=== PATIENT | male | born 1965 | race Caucasian/White ===

== ENCOUNTER 2017-07-07 08:21 | Emergency (ER) | payer OTHER ==
[~2017-07-07] VITALS: Ht 175.3 cm; Wt 56.0 kg
[~2017-07-07 08:21] MED LIST: ABILIFY PO; DEPAKOTE PO; EFFEXOR PO; HYDR-906 PO; NAPR-260 PO; NEURONTIN PO; TOPAMAX PO
[2017-07-07 08:23] VITALS: Ht 175.3 cm; Wt 56.0 kg
[2017-07-07] MEDS ORDERED: [UNRECOGNIZED DRUG - CODE] MC (08:45)
[2017-07-07 09:03] VITALS: PULSE 110
--- NOTE | 2017-07-07 09:04 | ERD ---
ER Documentation Chief Complaint Chief Complaint Patient needs a prescription for colostomy bags HPI Patient is a 51-year-old male with a history of throat cancer, currently on chemotherapy, history of bowel perforation, currently with colostomy bag, who presents ED for concerns of needing a refill of his colostomy bags. Patient states he ran out yesterday. Patient currently does not have a colostomy bag at his colostomy site. Patient denies any symptoms at this time. Patient denies any fevers, chills, nausea, vomiting, chest pain, shortness of breath, abdominal pain, nausea, vomiting or loss of consciousness. Patient words normal brown liquidy stool output from his colostomy site. Patient denies any bleeding from his colostomy site. Patient denies any suicidal ideations or homocidal ideations at this time. ROS All systems reviewed and are negative except as per history of present illness. Medications Home Meds Active Scripts Colostomy Bags (NEW IMAGE CLOSED POUCH) 1 Each Each, 1 EACH , #30 Prov:AUSTIN TAN PA-C 07/07/17 Hydrocodone/Acetaminophen ([employer] 5-325 Tablet) 1 Each Tablet, 1 TAB PO Q6H Y for PAIN, #7 TAB Prov:RAJWINDER FENTON PA-C 03/24/16 Naproxen* (Naprosyn*) 500 Mg Tablet, 500 MG PO BID Y for PAIN AND/OR INFLAMMATION, #30 TAB Prov:RAJWINDER FENTON PA-C 03/24/16 Reported Medications [Neurontin] No Conflict Check, PO DAILY 05/10/11 [Topamax] No Conflict Check, PO DAILY 05/10/11 [Depakote] No Conflict Check, PO DAILY 05/10/11 [Abilify] No Conflict Check, PO DAILY 05/10/11 [Effexor] No Conflict Check, PO DAILY 05/10/11 Allergies Allergies: Coded Allergies: codeine (Verified Allergy, Unknown, 03/24/16) paroxetine (Verified Allergy, Unknown, 03/24/16) PMhx/Soc History of Surgery: No Anesthesia Reaction: No Hx Neurological Disorder: No Hx Respiratory Disorders: No Hx Cardiac Disorders: No Hx Psychiatric Problems: Yes (DEPRESSION, SCITZO/EFFECTIVE ) Hx Miscellaneous Medical Probl: No Hx Alcohol Use: Yes Hx Substance Use: No Hx Tobacco Use: No Physical Exam Vitals Vital Signs Date Time Temp Pulse Resp B/P Pulse Ox O2 Delivery O2 Flow Rate FiO2 07/07/17 09:03 110 07/07/17 08:23 97.8 122 20 115/76 98 Physical Exam GENERAL: Well-developed, well-nourished male. Appears in no acute distress. Speaking in full sentences. HEAD: Normocephalic, atraumatic. EYES: Pupils are equally reactive bilaterally. EOMs grossly intact. No conjunctival erythema. ENT: Moist mucous membranes. No uvula deviation. No kissing tonsils. NECK: Supple. No meningismus. Normal range of motion of the neck. LUNG: Clear to auscultation bilaterally. No rhonchi, wheezing, rales or coarse breath sounds. HEART: Regular rhythm. Tachycardic. No murmurs, rubs or gallops. ABDOMEN: Previous surgical incisions noted. Colostomy site in mid left abdomen. Abdomen is soft, nontender, and nondistended. Positive bowel sounds in all four quadrants. No rebound tenderness, no guarding. (-) McBurney's point tenderness. EXTREMITIES: Equal pulses bilaterally. No peripheral clubbing, cyanosis or edema. No unilateral leg swelling. NEUROLOGIC: Alert and oriented. Moving all four extremities without any difficulty. Normal speech. Steady gait. SKIN: Normal color. Warm and dry. No rashes or lesions. Procedures/MDM ED COURSE: The patient was stable throughout ED course. I kept the patient and/or family informed of laboratory and diagnostic imaging results throughout the ED course. EKG: Read by Dr. Farmer, attending physician. EKG shows normal sinus rhythm at a rate of 97 bpm. No arrhythmias, acute ST elevations or T wave changes were noted. (obtained at pulse recheck) MEDICAL DECISION MAKING: Patient is a 51-year-old male with a history of throat cancer, currently receiving chemotherapy at [facility], s/p bowel surgery with colostomy who presents to the ED for concerns of a colostomy bag refill. Patient states he ran out of his bags yesterday. Patient denies any fevers, chills, nausea, vomiting, abdominal pain. Patient reports normal output from his colostomy site.. Vital signs were reviewed. Patient is afebrile. Patient was not hypoxic. Patient was noted to be tachycardic at a pulse of 122 at time of initial presentation. Patient's pulses noted to be downtrending prior to discharge. EKG was obtained and showed normal sinus rhythm, no ST elevations. Patient did admit that his pulse normally is in the upper 90s 100s. Patient was given 5 colostomy bags here in the ED to assist him over the next few days. Patient was also given a prescription for colostomy bags and instructed to go to his medical supply store to fill this prescription. At this time, patient is presenting for refill of his colostomy supplies. Low suspicion for acute abdomen, bowel obstruction, bowel perforation, sepsis, ACS. Patient denied any suicidal or homicidal ideations. Patient was stable at time of discharge. Patient was discharged per treat and release policy. PRESCRIPTION: Colostomy bags DISCHARGE: At this time, patient is stable for discharge and outpatient management. I have instructed the patient to follow-up with his/her primary care physician in 1-2 days. I have discussed with the patient the possibility of needing to see a specialist for further workup and imaging studies if symptoms persist. I have instructed the patient to promptly return to the ER for any new or worsening symptoms including increased pain, fever, nausea, vomiting, weakness or LOC. The patient and/or family expressed understanding of and agreement with this plan. All questions were answered. Home care instructions were provided. Disclaimer: Inadvertent spelling and grammatical errors are likely due to EHR/ dictation software use and do not reflect on the overall quality of patient care. Also, please note that the electronic time recorded on this note does not necessarily reflect the actual time of the patient encounter. Departure Diagnosis: Primary Impression: Colostomy care Additional Impression: Encounter for medication refill Condition: Stable Patient Instructions: Taking Medicine Safely Additional Instructions: Call your primary care doctor TOMORROW for an appointment during the next 1-2 days.See the doctor sooner or return here if your condition worsens before your appointment time. Follow up with your GI doctor/ PCP for additional refills. Go to the medical supply store to get colostomy bags. AUSTIN TAN PA-C Jul 07, 2017 09:01
== END 2017-07-07 09:30 | disposition home or self-care (01) ==
LOC: FTE 08:21
DX: Z43.3 Encounter for attention to colostomy (principal); R00.1 Bradycardia, unspecified; Z76.0 Encounter for issue of repeat prescription
CPT/HCPCS: 93005; Z7502

== ENCOUNTER 2017-07-16 12:04 | Emergency (ER) | payer OTHER ==
[~2017-07-16] VITALS: Ht 185.4 cm; Wt 55.5 kg
[~2017-07-16 12:04] MED LIST changes: +[UNRECOGNIZED DRUG - CODE] MC
[2017-07-16 12:08] VITALS: Ht 185.4 cm; Wt 55.5 kg
--- NOTE | 2017-07-16 12:38 | ERD ---
ER Documentation Chief Complaint Chief Complaint pt here for colostomy bag change HPI This is a 51-year-old male with a history of colon cancer with bowel perforation with colostomy. The patient is here because his new colostomy bags. The patient says [employer] delivered the bags to the wrong address and is having some leakage because the bag is in attaching anywhere to his skin because his old. He has no abdominal pain no leakage no other complaints. ROS All systems reviewed and are negative except as per history of present illness. Medications Home Meds Active Scripts Colostomy Bags (NEW IMAGE CLOSED POUCH) 1 Each Each, 1 EACH , #30 Prov:AUSTIN TAN PA-C 07/07/17 Hydrocodone/Acetaminophen ([place] 5-325 Tablet) 1 Each Tablet, 1 TAB PO Q6H Y for PAIN, #7 TAB Prov:RAJWINDER FENTON PA-C 03/24/16 Naproxen* (Naprosyn*) 500 Mg Tablet, 500 MG PO BID Y for PAIN AND/OR INFLAMMATION, #30 TAB Prov:RAJWINDER FENTON PA-C 03/24/16 Reported Medications [Neurontin] No Conflict Check, PO DAILY 05/10/11 [Topamax] No Conflict Check, PO DAILY 05/10/11 [Depakote] No Conflict Check, PO DAILY 05/10/11 [Abilify] No Conflict Check, PO DAILY 05/10/11 [Effexor] No Conflict Check, PO DAILY 05/10/11 Allergies Allergies: Coded Allergies: codeine (Verified Allergy, Unknown, 03/24/16) paroxetine (Verified Allergy, Unknown, 03/24/16) PMhx/Soc History of Surgery: No Anesthesia Reaction: No Hx Neurological Disorder: No Hx Respiratory Disorders: No Hx Cardiac Disorders: No Hx Psychiatric Problems: Yes (DEPRESSION, SCITZO/EFFECTIVE ) Hx Miscellaneous Medical Probl: No Hx Alcohol Use: Yes Hx Substance Use: No Hx Tobacco Use: No FmHx Family History: No coronary disease Physical Exam Vitals Vital Signs Date Time Temp Pulse Resp B/P Pulse Ox O2 Delivery O2 Flow Rate FiO2 07/16/17 12:08 98.1 89 18 121/87 99 Physical Exam Const: Well-developed, well-nourished Head: Atraumatic, normocephalic Eyes: Normal Conjunctiva, PERRLA, EOMI, normal sclera, no nystagmus ENT: Normal External Ears, Nose and Mouth, moist mucus membranes. Neck: Full range of motion. No meningismus, no lymphadenopathy. Resp: Clear to auscultation bilaterally, no wheezing, rhonchi, rales Cardio: Regular rate and rhythm, no murmurs, S1 S2 present Abd: Soft, non tender x 4, stoma is noninfected non distended. Normal bowel sounds, no guarding or rebound, no pulsitile abdominal masses or bruits Skin: No petechiae or rashes, no ecchymosis , no maculopapular rash Back: No midline or flank tenderness Ext: No cyanosis, or edema, FROM x 4, normal inspection, neurovascularly intact x 4 Neur: Awake and alert, STR 5/5 x 4, sensation intact x 4, no focal findings, cerebellum intact Psych: Normal Mood and Affect Procedures/MDM Patient was given have a colostomy bag discharged home Departure Diagnosis: Primary Impression: Colostomy complication, unspecified Condition: Stable Patient Instructions: Colostomy: Changing Your Pouch ALEJANDRO RAUSCH DO Jul 16, 2017 12:38
== END 2017-07-16 14:33 | disposition home or self-care (01) ==
LOC: E/R 12:04
DX: K94.00 Colostomy complication, unspecified (principal); Z85.038 Personal history of other malignant neoplasm of large intestine
CPT/HCPCS: 99282

== ENCOUNTER 2017-08-01 13:19 | Emergency (ER) | END 2017-08-01 14:40 | disposition home or self-care (01) ==

== ENCOUNTER 2017-08-15 18:23 | Emergency (ER) | END 2017-08-15 21:41 | disposition home or self-care (01) ==

== ENCOUNTER 2017-08-19 10:24 | Emergency (ER) | END 2017-08-19 13:17 | disposition home or self-care (01) ==

== ENCOUNTER 2017-09-02 18:45 | Emergency (ER) | END 2017-09-02 23:51 | disposition home or self-care (01) ==

== ENCOUNTER 2017-09-09 14:11 | Emergency (ER) | END 2017-09-09 17:29 | disposition home or self-care (01) ==

== ENCOUNTER 2017-09-20 23:56 | Emergency (ER) | END 2017-09-21 05:17 | disposition left against medical advice (07) ==

== ENCOUNTER 2017-11-16 01:31 | Emergency (ER) | END 2017-11-16 04:30 | disposition home or self-care (01) ==

== ENCOUNTER 2017-11-20 10:08 | Emergency (ER) | END 2017-11-20 11:41 | disposition left against medical advice (07) ==

== ENCOUNTER 2017-11-26 17:21 | Emergency (ER) | END 2017-11-26 17:36 | disposition home or self-care (01) ==

== ENCOUNTER 2017-12-28 00:12 | Emergency (ER) | END 2017-12-28 01:01 | disposition home or self-care (01) ==

== ENCOUNTER 2018-03-01 11:43 | Emergency (ER) | END 2018-03-01 13:17 | disposition home or self-care (01) ==

== ENCOUNTER 2018-03-07 23:41 | Emergency (ER) | END 2018-03-08 04:00 | disposition left against medical advice (07) ==

== ENCOUNTER 2018-03-29 15:03 | Emergency (ER) | END 2018-03-29 16:18 | disposition home or self-care (01) ==

== ENCOUNTER 2018-04-17 15:07 | Emergency (ER) | END 2018-04-17 15:38 | disposition left against medical advice (07) ==

== ENCOUNTER 2018-05-01 00:20 | Emergency (ER) | END 2018-05-01 01:19 | disposition home or self-care (01) ==

== ENCOUNTER 2018-08-04 12:53 | Emergency (ER) | payer BC ==
[~2018-08-04] VITALS: Ht 182.9 cm; Wt 61.7 kg
[~2018-08-04 12:53] MED LIST changes: +ALBU8.5H8 INH; +HYDR-4011 PO; -HYDR-906 PO; +IBUP-1561 PO; -NAPR-260 PO; +NAPR-985 PO; +[UNRECOGNIZED DRUG - CODE] MC; -[UNRECOGNIZED DRUG - CODE] MC
[2018-08-04 13:06] VITALS: Ht 182.9 cm; Wt 61.7 kg
--- NOTE | 2018-08-04 13:23 | ERD ---
ER Documentation Chief Complaint Chief Complaint COUGH, BODYACHES, GEN WEAKNESS X2 DAYS, HX OF STAGE 4 THROAT CA HPI The patient is a 52-year-old male, presenting to the ER because of cough, congestion for 3 days, denies fever, chills, neck pain, chest pain, dyspnea, abdominal pain, vomiting. He smokes and drinks socially Past medical history: History of throat cancer, treated with radiation and chemotherapy again a half ago, depression, schizophrenia Past surgical history: Colostomy due to rupture bowel ROS All systems reviewed and are negative except as per history of present illness. Medications Home Meds Active Scripts Albuterol Sulfate* (Proair HFA*) 8.5 Gm Hfa.aer.ad, 2 PUFF INH Q4, #1 INHALER Prov:JOANNE CHRISTINE MD 08/04/18 Dextromethorphan Hb-Promethazine Hcl* (Promethazine DM* Syrup) 473 Ml Syrup, 10 ML PO Q6 PRN for COUGH, #120 ML Prov:JOANNE CHRISTINE MD 08/04/18 Azithromycin* (Zithromax*) 250 Mg Tablet, 250 MG PO .ZPACK DIRECTED, #6 TAB TAKE 500 MG (2 TABS) THE FIRST DAY THEN 250 MG (1 TAB) DAYS 2-5 Prov:JOANNE CHRISTINE MD 08/04/18 Discontinued Reported Medications [Neurontin] No Conflict Check, PO DAILY 05/10/11 [Topamax] No Conflict Check, PO DAILY 05/10/11 [Depakote] No Conflict Check, PO DAILY 05/10/11 [Abilify] No Conflict Check, PO DAILY 05/10/11 [Effexor] No Conflict Check, PO DAILY 05/10/11 Discontinued Scripts Albuterol Sulfate* (Proair HFA*) 8.5 Gm Hfa.aer.ad, 2 PUFF INH Q4, #1 INHALER Prov:JOANNE CHRISTINE MD 11/16/17 Ibuprofen* (Motrin*) 400 Mg Tab, 400 MG PO Q6H PRN for PAIN AND OR ELEVATED TEMP, #30 TAB Prov:RODO BINGHAM PA-C 09/09/17 Colostomy Bags (NEW IMAGE CLOSED POUCH) 1 Each Each, 1 EACH , #30 Prov:AUSTIN TAN PA-C 07/07/17 Hydrocodone/Acetaminophen ([employer] 5-325 Tablet) 1 Each Tablet, 1 TAB PO Q6H PRN for PAIN, #7 TAB Prov:RAJWINDER FENTON PA-C 03/24/16 Naproxen* (Naprosyn*) 500 Mg Tablet, 500 MG PO BID PRN for PAIN AND/OR INFLAMMATION, #30 TAB Prov:RAJWINDER FENTON PA-C 03/24/16 Allergies Allergies: Coded Allergies: paroxetine (Verified Allergy, Unknown, 03/01/18) PMhx/Soc History of Surgery: Yes (colostomy, rt wrist surgery ) Anesthesia Reaction: No Hx Neurological Disorder: No Hx Respiratory Disorders: No Hx Cardiac Disorders: No Hx Psychiatric Problems: Yes (DEPRESSION, SCITZO/EFFECTIVE ) Hx Miscellaneous Medical Probl: Yes (throat ca) Hx Alcohol Use: No Hx Substance Use: Yes (marijuana) Hx Tobacco Use: No Physical Exam Vitals Vital Signs Date Temp Pulse Resp B/P (MAP) Pulse Ox O2 O2 Flow FiO2 Time Delivery Rate 08/04/18 97.6 88 17 93/71 (78) 100 Room Air 16:32 08/04/18 86 16 100 21 14:46 08/04/18 100 17 117/103 100 13:39 (108) 08/04/18 97.6 112 17 111/62 99 13:06 (78) Physical Exam Const: No acute distress. Head: Atraumatic. Eyes: Normal Conjunctiva. ENT: Normal External Ears, Nose and Mouth. Neck: Full range of motion. No meningismus. Resp: Mild Bilateral expiratory wheezes Cardio: Regular rate and rhythm. Abd: Soft, non distended, normal bowel sounds, non tender. Skin: No petechiae or rashes. Back: No midline or flank tenderness. Ext: No cyanosis, or edema. Neur: Awake and alert. No focal deficit Psych: Normal Mood and Affect. Result Diagram: 08/04/18 1408 08/04/18 1408 Results 24 hrs Laboratory Tests Test 08/04/18 14:08 White Blood Count 5.0 10^3/ul Red Blood Count 4.12 10^6/ul Hemoglobin 12.6 g/dl Hematocrit 38.0 % Mean Corpuscular Volume 92.2 fl Mean Corpuscular Hemoglobin 30.6 pg Mean Corpuscular Hemoglobin Concent 33.2 g/dl Red Cell Distribution Width 13.1 % Platelet Count 248 10^3/UL Mean Platelet Volume 9.0 fl Immature Granulocytes % 0.000 % Neutrophils % 84.2 % Lymphocytes % 7.6 % Monocytes % 7.0 % Eosinophils % 0.6 % Basophils % 0.6 % Nucleated Red Blood Cells % 0.0 /100WBC Immature Granulocytes # 0.000 10^3/ul Neutrophils # 4.2 10^3/ul Lymphocytes # 0.4 10^3/ul Monocytes # 0.4 10^3/ul Eosinophils # 0.0 10^3/ul Basophils # 0.0 10^3/ul Nucleated Red Blood Cells # 0.0 10^3/ul Sodium Level 139 mmol/L Potassium Level 4.3 mmol/L Chloride Level 103 mmol/L Carbon Dioxide Level 27 mmol/L Anion Gap 9 Blood Urea Nitrogen 18 mg/dl Creatinine 0.64 mg/dl Est Glomerular Filtrat Rate mL/min > 60 mL/min Glucose Level 95 mg/dl Calcium Level 9.9 mg/dl Current Medications Medications Dose Sig/Ashwini Start Time Status Last (Trade) Ordered Route PRN Stop Time Admin Dose Reason Admin Ipratropium 0.5 mg ONCE STAT 08/04/18 DC 08/04/18 [place] NEB 13:43 08/04/18 14:46 (Atrovent 13:48 0.02% (Neb)) 1.25 mg ONCE STAT 08/04/18 DC 08/04/18 Levalbuterol INH 13:43 08/04/18 14:46 (Xopenex 13:48 Neb) Sodium 1,000 ml @ Q1H ONCE 08/04/18 DC 08/04/18 Chloride 1,000 mls/hr IV 14:00 08/04/18 14:13 14:59 Procedures/[place] [id number] Radiology Main Line: [phone] DIAGNOSTIC IMAGING REPORT Patient: CLARIBEL HAYENS : 1965 Age: 52 Sex: M MR #: [id number] DOS: 08/04/18 1343 Ordering MD: JOANNE CHRISTINE MD Location: E/R Room/Bed: PROCEDURE: XR Chest. CLINICAL INDICATION: Chest pain TECHNIQUE: Single portable view of the chest was obtained COMPARISON: CR CHEST 03/24/2016 FINDINGS: The trachea is midline. The cardiac silhouette and pulmonary vascularity are within normal limits. There are bilateral chronic lung changes per The lungs are clear. The costophrenic angles are sharp. IMPRESSION: 1. Bilateral chronic lung changes. No evidence of acute cardiopulmonary disease. RPTAT: AAPP Physician Racheal Date Time Electronically viewed and signed by Eneida Flores Physician on 08/04/2018 14:09 JL/ CC: JOANNE CHRISTINE MD [phone] MEDICAL MAKING DECISION: The patient is a 52-year-old male, presenting with acute bronchitis, acute dehydration. He was treated with Atrovent 1.25mg and Atrovent 0.5 mg for wheezing with good response, 1 L normal saline for acute dehydration with good response The differential diagnoses considered include but are not limited to asthma, COPD, pneumonia, pulmonary embolus, pleural effusion, congestive heart failure. Departure Diagnosis: Primary Impression: Bronchitis Additional Impressions: Dehydration Anemia Condition: Good Comments He was discharged with Zithromax, Phenergan DM, Albuterol I discussed the findings with the patient. I advised the patient to follow-up with the primary physician in about 2-3 days, sooner if needed and return if any concern. Disclaimer: Inadvertent spelling and grammatical errors are likely due to EHR/dictation software use and do not reflect on the overall quality of patient care. Also, please note that the electronic time recorded on this note does not necessarily reflect the actual time of the patient encounter. JOANNE CHRISTINE MD Aug 04, 2018 13:23
[2018-08-04] MEDS ORDERED: IPRATROPIUM (NEB) 0.5 MG/2.5 ML AMP NEB STA (13:43)
[2018-08-04] MEDS ORDERED: LEVALBUTEROL (NEB) 1.25 MG/0.5 ML AMP INH STA (13:43)
[2018-08-04] MEDS ORDERED: SOD CHLORIDE 0.9% 1,000 ML IV ONE (14:00)
[2018-08-04] MEDS ORDERED: AZIT250T PO (15:17)
[2018-08-04] MEDS ORDERED: D-ME473S2 PO (15:18)
[2018-08-04] MEDS ORDERED: ALBU8.5H8 INH (15:18)
[2018-08-04 16:32] VITALS: BP 93/71; PULSE 88; RESP 17
== END 2018-08-04 17:01 | disposition home or self-care (01) ==
LOC: E/R 12:53
DX: J40 Bronchitis, not specified as acute or chronic (principal); E86.0 Dehydration; D64.9 Anemia, unspecified; Z85.819 Personal history of malignant neoplasm of unspecified site of lip, oral cavity, and pharynx
CPT/HCPCS: 36415; 71045; 80048; 85025; 94664; J7030; Z7502; Z7610

== ENCOUNTER 2018-08-23 11:33 | Emergency (ER) | payer BC ==
[~2018-08-23] VITALS: Wt 67.0 kg
[~2018-08-23 11:33] MED LIST changes: -ABILIFY PO; +AZIT250T PO; +D-ME473S2 PO; -DEPAKOTE PO; -EFFEXOR PO; -HYDR-4011 PO; -IBUP-1561 PO; -NAPR-985 PO; -NEURONTIN PO; -TOPAMAX PO; -[UNRECOGNIZED DRUG - CODE] MC
[2018-08-23 11:36] VITALS: BP 116/59; PULSE 60; RESP 20
--- NOTE | 2018-08-23 14:34 | ERD ---
ER Documentation Chief Complaint Chief Complaint WANTS TO HAVE COLOSTOMY BAG, IS BROKEN HPI 52-year-old male presents for colostomy bag supplies. States that the bag broke about 3 hours ago and he does not have any replacement supplies. Patient states that the shipment is pending. He has a history of throat cancer and bowel rupture requiring placement of colostomy that he has had on for about a year and a half. No other complaints. ROS All systems reviewed and are negative except as per history of present illness. Medications Home Meds Active Scripts Albuterol Sulfate* (Proair HFA*) 8.5 Gm Hfa.aer.ad, 2 PUFF INH Q4, #1 INHALER Prov:JOANNE CHRISTINE MD 08/04/18 Dextromethorphan Hb-Promethazine Hcl* (Promethazine DM* Syrup) 473 Ml Syrup, 10 ML PO Q6 PRN for COUGH, #120 ML Prov:JOANNE CHRISTINE MD 08/04/18 Azithromycin* (Zithromax*) 250 Mg Tablet, 250 MG PO .ZPACK DIRECTED, #6 TAB TAKE 500 MG (2 TABS) THE FIRST DAY THEN 250 MG (1 TAB) DAYS 2-5 Prov:JOANNE CHRISTINE MD 08/04/18 Allergies Allergies: Coded Allergies: paroxetine (Verified Allergy, Unknown, 03/01/18) PMhx/Soc History of Surgery: Yes (colostomy, rt wrist surgery ) Anesthesia Reaction: No Hx Neurological Disorder: No Hx Respiratory Disorders: No Hx Cardiac Disorders: No Hx Psychiatric Problems: Yes (DEPRESSION, SCITZO/EFFECTIVE ) Hx Miscellaneous Medical Probl: Yes (throat ca) Hx Alcohol Use: No Hx Substance Use: Yes (marijuana) Hx Tobacco Use: Yes (1/2 Pack a day) Smoking Status: Never smoker Physical Exam Vitals Vital Signs Date Temp Pulse Resp B/P (MAP) Pulse Ox O2 O2 Flow FiO2 Time Delivery Rate 08/23/18 98.1 60 20 116/59 99 11:36 (78) Physical Exam Const: No acute distress Resp: Clear to auscultation bilaterally Cardio: Regular rate and rhythm, no murmurs Abd: Soft, non tender, non distended. Normal bowel sounds, colostomy stoma intact, no signs of infection Skin: No petechiae or rashes Back: No midline or flank tenderness Ext: No cyanosis, or edema Neur: Awake and alert Psych: Normal Mood and Affect Procedures/MDM Medical Decision Making: Patient appeared well on physical exam. Stoma was checked and was intact. There is no signs of infection. Patient presented for colostomy supplies. Colostomy supplies given in the ER. Patient advised to follow up with PCP in 1-2 days. Patient advised to return to ED for new or worsening symptoms. Patient stable on discharge from the ED. Disclaimer: Inadvertent spelling and grammatical errors are likely due to EHR/dictation software use and do not reflect on the overall quality of patient care. Also, please note that the electronic time recorded on this note does not necessarily reflect the actual time of the patient encounter. Departure Diagnosis: Primary Impression: Colostomy care Condition: Fair Patient Instructions: Colostomy: Irrigating Your Colostomy Referrals: [facility] YOU HAVE RECEIVED A MEDICAL SCREENING EXAM AND THE RESULTS INDICATE THAT YOU DO NOT HAVE A CONDITION THAT REQUIRES URGENT TREATMENT IN THE EMERGENCY DEPARTMENT. FURTHER EVALUATION AND TREATMENT OF YOUR CONDITION CAN WAIT UNTIL YOU ARE SEEN IN YOUR DOCTORS OFFICE WITHIN THE NEXT 1-2 DAYS. IT IS YOUR RESPONSIBILITY TO M JAYLYN AN APPOINTMENT FOR FOLOW-UP CARE. IF YOU HAVE A PRIMARY DOCTOR --you should call your primary doctor and schedule an appointment IF YOU DO NOT HAVE A PRIMARY DOCTOR YOU CAN CALL OUR PHYSICIAN REFERRAL HOTLINE AT IF YOU CAN NOT AFFORD TO SEE A PHYSICIAN YOU CAN CHOSE FROM THE [facility] [address] [facility]. [facility] [address] [facility] [facility] [address] [facility] [facility] [address] [facility] [address] [facility]. [facility]. [address] Additional Instructions: Call your primary care doctor TOMORROW for an appointment during the next 1-2 days.See the doctor sooner or return here if your condition worsens before your appointment time. JOANNE MILLER DO Aug 23, 2018 14:34
== END 2018-08-23 15:27 | disposition home or self-care (01) ==
LOC: FTE 11:33
DX: Z43.3 Encounter for attention to colostomy (principal); Z85.818 Personal history of malignant neoplasm of other sites of lip, oral cavity, and pharynx; Z87.891 Personal history of nicotine dependence
CPT/HCPCS: 99282

== ENCOUNTER 2018-12-31 23:00 | Emergency (ER) | payer BC ==
[~2018-12-31] VITALS: Ht 172.7 cm; Wt 62.3 kg
[2018-12-31 23:18] VITALS: BP 106/74; PULSE 95; RESP 20; Ht 172.7 cm; Wt 62.3 kg
--- NOTE | 2019-01-01 23:53 | ERD ---
ER Documentation Chief Complaint Chief Complaint needs colostomy bag replacement; ran out of bags HPI This is a 53-year-old male patient who presents to the emergency room with request for colostomy bag supplies as his shipment has not yet come in. Patient has had colostomy for several years, denies any redness swelling pain fevers or any medical complaint. Patient is alert, appropriate, well appearing. ROS All systems reviewed and are negative except as per history of present illness. Medications Home Meds Active Scripts Albuterol Sulfate* (Proair HFA*) 8.5 Gm Hfa.aer.ad, 2 PUFF INH Q4, #1 INHALER Prov:JOANNE CHRISTINE MD 08/04/18 Dextromethorphan Hb-Promethazine Hcl* (Promethazine DM* Syrup) 473 Ml Syrup, 10 ML PO Q6 PRN for COUGH, #120 ML Prov:JOANNE CHRISTINE MD 08/04/18 Azithromycin* (Zithromax*) 250 Mg Tablet, 250 MG PO .ZPACK DIRECTED, #6 TAB TAKE 500 MG (2 TABS) THE FIRST DAY THEN 250 MG (1 TAB) DAYS 2-5 Prov:OJANNE CHRISTINE MD 08/04/18 Allergies Allergies: Coded Allergies: paroxetine (Verified Allergy, Unknown, 03/01/18) PMhx/Soc History of Surgery: Yes (colostomy, rt wrist surgery ) Anesthesia Reaction: No Hx Neurological Disorder: No Hx Respiratory Disorders: No Hx Cardiac Disorders: No Hx Psychiatric Problems: Yes (DEPRESSION, SCITZO/EFFECTIVE ) Hx Miscellaneous Medical Probl: Yes (throat ca) Hx Alcohol Use: No Hx Substance Use: Yes (marijuana) Hx Tobacco Use: Yes (1/2 Pack a day) Smoking Status: Current every day smoker FmHx Family History: No diabetes, No coronary disease, No other Physical Exam Vitals Vital Signs Date Temp Pulse Resp B/P (MAP) Pulse Ox O2 O2 Flow FiO2 Time Delivery Rate 12/31/18 97.4 95 20 106/74 98 23:18 (85) Physical Exam Const: No acute distress Head: Atraumatic Eyes: Normal Conjunctiva ENT: Normal External Ears, Nose and Mouth. Neck: Full range of motion. No meningismus. Resp: Clear to auscultation bilaterally Cardio: Regular rate and rhythm, no murmurs Abd: Soft, non tender, non distended. Normal bowel sounds, stoma pink, no hematochezia or melena in effluent, peristotmal skin without erythema Skin: No petechiae or rashes Neur: Awake and alert Psych: Normal Mood and Affect Procedures/MDM This is a 53-year-old male patient presents emergency room with request for colostomy bag supplies. Patient states his supply will come in tomorrow. Patient has no medical complaints at this time. Pt observed to be able to replace bag independently without difficulty. Patient provided with 2 colostomy bags with supplies. Patient states he has appointment with his doctor this week for routine follow-up. Departure Diagnosis: Primary Impression: Colostomy care Condition: Stable Patient Instructions: Colostomy Referrals: [facility] YOU HAVE RECEIVED A MEDICAL SCREENING EXAM AND THE RESULTS INDICATE THAT YOU DO NOT HAVE A CONDITION THAT REQUIRES URGENT TREATMENT IN THE EMERGENCY DEPARTMENT. FURTHER EVALUATION AND TREATMENT OF YOUR CONDITION CAN WAIT UNTIL YOU ARE SEEN IN YOUR DOCTORS OFFICE WITHIN THE NEXT 1-2 DAYS. IT IS YOUR RESPONSIBILITY TO MAKE AN APPOINTMENT FOR FOLOW-UP CARE. IF YOU HAVE A PRIMARY DOCTOR --you should call your primary doctor and schedule an appointment IF YOU DO NOT HAVE A PRIMARY DOCTOR YOU CAN CALL OUR PHYSICIAN REFERRAL HOTLINE AT IF YOU CAN NOT AFFORD TO SEE A PHYSICIAN YOU CAN CHOSE FROM THE FOLLOWING [facility] [address] [facility]. [facility] [address] [facility] [facility] [address] [facility] [facility] [address] [facility]. [facility] [address]. [facility]. [address] Additional Instructions: Thank you very much for allowing us to participate in your care. Your health and safety is our top priority at [facility]. If the symptoms get worse and your provider is unavailable, return to the Emergency Department immediately. DANIELLE JOHNSON NP Jan 01, 2019 23:53
== END 2019-01-01 02:00 | disposition left against medical advice (07) ==
LOC: FTE 23:00
DX: Z46.89 Encounter for fitting and adjustment of other specified devices (principal); F17.210 Nicotine dependence, cigarettes, uncomplicated; Z85.818 Personal history of malignant neoplasm of other sites of lip, oral cavity, and pharynx
CPT/HCPCS: Z7610 ×3; 99282

== ENCOUNTER 2019-01-30 13:58 | Emergency (ER) | payer BC ==
[~2019-01-30] VITALS: Ht 182.9 cm; Wt 60.1 kg
[2019-01-30 13:59] VITALS: Ht 182.9 cm; Wt 60.1 kg
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
[2019-01-30] MEDS ORDERED: HYDROCODONE/APAP (5/325) TAB PO ONE (15:00)
[2019-01-30] MEDS ORDERED: HYDR-4011 PO (16:02)
[2019-01-30 16:21] VITALS: BP 113/81; PULSE 67; RESP 12
== END 2019-01-30 16:32 | disposition home or self-care (01) ==
LOC: E/R 13:58
DX: R07.89 Other chest pain (principal); Z87.891 Personal history of nicotine dependence; Z85.038 Personal history of other malignant neoplasm of large intestine; Z85.818 Personal history of malignant neoplasm of other sites of lip, oral cavity, and pharynx
CPT/HCPCS: 71045; 71100; 80048; 84484; 85025; Z7502; Z7610; 93005

== ENCOUNTER 2019-02-04 15:44 | Emergency (ER) | payer BC ==
[~2019-02-04] VITALS: Ht 175.3 cm; Wt 58.5 kg
[~2019-02-04 15:44] MED LIST changes: +HYDR-4011 PO
[2019-02-04 15:54] VITALS: Ht 175.3 cm; Wt 58.5 kg
--- NOTE | 2019-02-04 16:27 | ERD ---
ER Documentation Chief Complaint Chief Complaint here for colostomy bag replacement HPI 53-year-old male with a history of colon cancer with colostomy presenting with request for colostomy bag. He has no other complaints. No abdominal pain. It seems there was a problem with his shipment and he has not received his colostomy bags. ROS All systems reviewed and are negative except as per history of present illness. Medications Home Meds Active Scripts Hydrocodone/Acetaminophen ([place] 5-325 Tablet) 1 Each Tablet, 1 TAB PO Q6H PRN for PAIN, #7 TAB Prov:VIRA BENJAMIN MD 01/30/19 Albuterol Sulfate* (Proair HFA*) 8.5 Gm Hfa.aer.ad, 2 PUFF INH Q4, #1 INHALER Prov:JOANNE CHRISTINE MD 08/04/18 Dextromethorphan Hb-Promethazine Hcl* (Promethazine DM* Syrup) 473 Ml Syrup, 10 ML PO Q6 PRN for COUGH, #120 ML Prov:JOANNE CHRISTINE MD 08/04/18 Azithromycin* (Zithromax*) 250 Mg Tablet, 250 MG PO .ZPACK DIRECTED, #6 TAB TAKE 500 MG (2 TABS) THE FIRST DAY THEN 250 MG (1 TAB) DAYS 2-5 Prov:JOANNE CHRISTINE MD 08/04/18 Allergies Allergies: Coded Allergies: paroxetine (Verified Allergy, Unknown, 03/01/18) PMhx/Soc History of Surgery: Yes (colostomy, rt wrist surgery ) Anesthesia Reaction: No Hx Neurological Disorder: No Hx Respiratory Disorders: No Hx Cardiac Disorders: No Hx Psychiatric Problems: Yes (DEPRESSION, SCITZO/EFFECTIVE ) Hx Miscellaneous Medical Probl: Yes (throat ca, colon cancer) Hx Alcohol Use: No Hx Substance Use: Yes (cannabis) Hx Tobacco Use: Yes (1/2 Pack a day) Smoking Status: Current every day smoker FmHx Family History: No diabetes Physical Exam Vitals Vital Signs Date Temp Pulse Resp B/P (MAP) Pulse Ox O2 O2 Flow FiO2 Time Delivery Rate 02/04/19 98.3 118 18 122/75 98 15:54 (91) Physical Exam INITIAL VITAL SIGNS: Reviewed by me GENERAL: Well appearing, non toxic, speaking in full sentences. HEENT: Atraumatic, Moist mucous membranes RESPIRATORY: No respiratory distress. ABDOMEN: Colostomy site appears well. Nondistended. Nontender. NEUROLOGIC: Alert and awake. Procedures/MDM Patient is here requesting colostomy bag. He has no acute medical complaints. Vitals were notable for mild tachycardia, but I do not suspect acute infection. Possibly he has mild dehydration. Recommended increasing oral fluid intake. Patient's blood pressure was elevated (>120/80) but appears stable without evidence of hypertension emergency or urgency. The patient was counseled about the risks of hypertension and urged to pursue outpatient monitoring and therapy within a week with their primary care physician. Departure Diagnosis: Primary Impression: Colostomy care Condition: Stable Patient Instructions: Colostomy: Changing Your Pouch VIRA BENJAMIN MD Feb 04, 2019 16:27
[2019-02-04 16:30] VITALS: BP 101/70; PULSE 104; RESP 16
== END 2019-02-04 16:30 | disposition home or self-care (01) ==
LOC: E/R 15:44
DX: Z43.3 Encounter for attention to colostomy (principal); F17.210 Nicotine dependence, cigarettes, uncomplicated; Z85.038 Personal history of other malignant neoplasm of large intestine; Z85.818 Personal history of malignant neoplasm of other sites of lip, oral cavity, and pharynx
CPT/HCPCS: Z7502; Z7610; 99282

== ENCOUNTER 2019-03-01 13:03 | Inpatient (IN) | payer BC ==
[~2019-03-01] VITALS: Ht 182.9 cm; Wt 57.3 kg
[~2019-03-01 13:03] MED LIST changes: +IBUP200C11 PO; +LEVO750T8 PO
--- NOTE | 2019-03-01 13:11 | ERD ---
ER Documentation Chief Complaint Chief Complaint cough/sob x 3 days; [facility] dx pna HPI 53-year-old male with a history of colon CA presenting with sent from [facility] for admission with a diagnosis of pneumonia. Patient states that he has been coughing and having shortness of breath for the past 3 days. He has had associated green phlegm. No fevers or chills. He complains of left-sided chest pain as well that has been constant, aching, nonradiating, with no alleviating factors. Worsened with cough. He went to [facility] where he was diagnosed with pneumonia, hyponatremia, and mild hypokalemia. Transferred here due to insurance reasons. ROS All systems reviewed and are negative except as per history of present illness. Medications Home Meds Active Scripts Hydrocodone/Acetaminophen ([place] 5-325 Tablet) 1 Each Tablet, 1 TAB PO Q6H PRN for PAIN, #7 TAB Prov:VIRA BENJAMIN MD 01/30/19 Albuterol Sulfate* (Proair HFA*) 8.5 Gm Hfa.aer.ad, 2 PUFF INH Q4, #1 INHALER Prov:JOANNE CHRISTINE MD 08/04/18 Dextromethorphan Hb-Promethazine Hcl* (Promethazine DM* Syrup) 473 Ml Syrup, 10 ML PO Q6 PRN for COUGH, #120 ML Prov:JOANNE CHRISTINE MD 08/04/18 Azithromycin* (Zithromax*) 250 Mg Tablet, 250 MG PO .ZPACK DIRECTED, #6 TAB TAKE 500 MG (2 TABS) THE FIRST DAY THEN 250 MG (1 TAB) DAYS 2-5 Prov:JOANNE CHRISTINE MD 08/04/18 Allergies Allergies: Coded Allergies: paroxetine (Verified Allergy, Unknown, 03/01/18) PMhx/Soc History of Surgery: Yes (colostomy, rt wrist surgery ) Anesthesia Reaction: No Hx Neurological Disorder: No Hx Respiratory Disorders: No Hx Cardiac Disorders: No Hx Psychiatric Problems: Yes (DEPRESSION, SCITZO/EFFECTIVE ) Hx Miscellaneous Medical Probl: Yes (throat ca, colon cancer) Hx Alcohol Use: No Hx Substance Use: Yes (cannabis) Hx Tobacco Use: Yes (1/2 Pack a day) FmHx Family History: No diabetes Physical Exam Vitals Vital Signs Date Temp Pulse Resp B/P (MAP) Pulse Ox O2 O2 Flow FiO2 Time Delivery Rate 03/01/19 98.0 88 18 101/70 96 13:05 (80) Physical Exam Const: No acute distress, nontoxic Head: Atraumatic Eyes: Normal Conjunctiva ENT: Normal External Ears, Nose and Mouth. Neck: Full range of motion. No meningismus. Resp: Diminished breath sounds at the bases bilaterally with no audible wheezing or rales. No tachypnea. No retractions. Cardio: Regular rate and rhythm, no murmurs Abd: Colostomy noted, clean dry and intact. Soft, non tender, non distended. Normal bowel sounds Skin: No petechiae or rashes Back: No midline or flank tenderness Ext: No cyanosis, or edema Neur: Awake and alert Psych: Normal Mood and Affect Results 24 hrs Current Medications Medications Dose Sig/Ashwini Start Time Status Last (Trade) Ordered Route PRN Stop Time Admin Dose Reason Admin IV Flush 3 ml PER 03/01/19 (NS 3 ml) PROTOCOL IV 13:30 Ondansetron 4 mg Q6H PRN 03/01/19 HCl (Zofran IV 13:30 Inj) NAUSEA/VOMITI NG 650 mg Q6H PRN 03/01/19 Acetaminophen PO .PAIN 1-3 13:30 (Tylenol OR TEMP Tab) 1 tab Q6H PRN 03/01/19 Acetaminophen PO .PAIN 4-6 13:30 / Hydrocodone Bitart ([place] (5/325)) Morphine 2 mg Q4H PRN 03/01/19 Sulfate IV .PAIN 13:30 (morphine) 7-10 Heparin 5,000 unit Q12 SC 03/01/19 Sodium 13:30 (Porcine) (Heparin (5000 Units/1ml)) Sodium 1,000 ml @ Q20H IV 03/01/19 Chloride 50 mls/hr 13:30 03/02/19 09:29 Piperacillin 100 ml @ Q6 IVPB 03/01/19 Sod/ 200 mls/hr 14:00 Tazobactam Sod Albuterol/ 3 ml Q6HWA RESP 03/01/19 UNV Ipratropium THERAPY HHN 14:00 (Duoneb) Albuterol/ 3 ml Q2H RESP 03/01/19 UNV Ipratropium THERAPY PRN 14:00 (Duoneb) HHN shortness of breath Budesonide 0.5 mg BID RESP 03/01/19 UNV (Pulmicort THERAPY HHN 20:00 (Neb)) Procedures/MDM ADMIT MDM Spoke with the hospitalist on-call, Dr. Beltran, who accepts the patient for admission. Currently the patient is hemodynamically stable with no evidence of severe sepsis or septic shock. No evidence of respiratory failure. Labs will b e repeated by the hospitalist. Will defer any further management of the patient to Dr. Beltran. Departure Diagnosis: Primary Impression: Pneumonia, community acquired Laterality: unspecified laterality Qualified Codes: J18.9 - Pneumonia, unspecified organism Additional Impression: Hyponatremia Condition: Fair VIRA BENJAMIN MD Mar 01, 2019 13:11
[2019-03-01] MEDS ORDERED: NACL 0.9% 3 ML SYG IV SCH (13:30)
[2019-03-01] MEDS ORDERED: ONDANSETRON 4 MG INJ IV PRN (13:30)
[2019-03-01] MEDS ORDERED: SOD CHLORIDE 0.9% 1,000 ML IV SCH (13:30)
[2019-03-01] MEDS ORDERED: ACETAMINOPHEN 325 MG TAB PO PRN (13:30)
--- NOTE | 2019-03-01 13:47 | HP ---
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 Patient states that he went to the ER due to 3 days of worsening cough and generalized malaise and weakness. Otherwise patient states that before he was in his normal state of health, patient ambulates on his own and other than some mild chronic difficulty eating due to radiation scarring he has no other acute complaints at this time. Patient states that he is currently not on chemotherapy or radiation as his oncologist stated that there is nothing else to do for him in the last time he saw an oncologist was approximately 1 or 1 and 1/2 years ago. Patient currently follows up with a primary care provider and currently takes no medications. Patient denies headache, nausea, vomiting, abdominal pain, bowel or bladder dysfunction, leg pain. Objective Physical exam General: Patient is laying in bed and answers questions appropriately Mentation: Patient is alert and oriented 4, Head: Normocephalic atraumatic Eyes: EOMI, pupils reactive to light Neck: Supple, nontender, midline Respiratory: Coarse to auscultation bilaterally Cardiovascular: regular rate, no obvious murmurs Gastrointestinal: non-tender to palpation, bowel sounds heard. Neurological: Moves all extremities spontaneously Skin: No new skin lesions Assessment and plan Of note I reviewed the patient's labs at outside facility, we do not have labs currently at this time during this visit. Multifocal micronodular pneumonia -Seen on CT angiogram done at transferring facility -Broad-spectrum IV antibiotic -Pulmonary consulted. Recommendations appreciated regarding possible spread of cancer if any versus multifocal pneumonia -Infectious disease also on board to direct IV antibiotic -Cultures taken History of pharyngeal carcinoma -Unknown if in true remission, patient states that his last visit with his oncologist was a year ago, has a history of radiation therapy and chemotherapy, according to patient chemotherapy had to be stopped due to bowel rupture and subsequent colostomy Electrolyte derangement -Patient has very mild low sodium and very mild low potassium at outside facility however received fluids, will reorder labs and if stable will monitor -Replete as needed COPD seen on CT angiogram -bullous COPD, patient is a daily smoker, denies knowing that had COPD -DuoNeb and budesonide nebulizer for now given cough/resp symptoms Questional history of depression and schizoaffective disorder -Not on any medications, patient appears stable, monitor T7 Schmorl's node -Asymptomatic at this time, monitor closely History of colostomy -Patient unsure exactly what happened to his bowel but stated that his bowel had a rupture -Colostomy care Disposition -Continue IV antibiotics, infectious disease and pulmonology recommendations appreciated HPI/ROS Admit Date/Time Admit Date/Time PMH/Family/Social Past Medical History Medications Current Medications IV Flush (NS 3 ml) 3 ml PER PROTOCOL IV ; Start 03/01/19 at 13:30 Ondansetron HCl (Zofran Inj) 4 mg Q6H PRN IV NAUSEA/VOMITING; Start 03/01/19 at 13:30 Acetaminophen (Tylenol Tab) 650 mg Q6H PRN PO .PAIN 1-3 OR TEMP; Start 03/01/19 at 13:30 Acetaminophen/ Hydrocodone Bitart ([place] (5/325)) 1 tab Q6H PRN PO .PAIN 4-6; Start 03/01/19 at 13:30 Morphine Sulfate (morphine) 2 mg Q4H PRN IV .PAIN 7-10; Start 03/01/19 at 13:30 Heparin Sodium (Porcine) (Heparin (5000 Units/1ml)) 5,000 unit Q12 SC ; Start 03/01/19 at 13:30 Sodium Chloride 1,000 ml @ 50 mls/hr Q20H IV ; Start 03/01/19 at 13:30; Stop 03/02/19 at 09:29 Piperacillin Sod/ Tazobactam Sod 100 ml @ 200 mls/hr Q6 IVPB ; Start 03/01/19 at 14:00 Coded Allergies: paroxetine (Verified Allergy, Unknown, 03/01/18) Exam/Review of Systems Vital Signs Vitals Vital Signs Date Temp Pulse Resp B/P (MAP) Pulse Ox O2 O2 Flow FiO2 Time Delivery Rate 03/01/19 98.0 88 18 101/70 96 13:05 (80) VIELKA ELAINE Mar 01, 2019 13:47
[2019-03-01] MEDS ORDERED: ALBUTEROL/IPRATROPIUM (NEB) 3 ML AMP HHN PRN (14:00)
[2019-03-01] MEDS: HYDROCODONE/APAP (5/325) TAB PO PRN (14:08)
[2019-03-01] MEDS: morphine 2 MG INJ IV PRN ×2 (14:08→20:49)
[2019-03-01] MEDS: PIPER-TAZO 3.375 GM IV (PMX) 100 ML IVPB SCH ×3 (14:08→23:54)
[2019-03-01] MEDS: HEPARIN 5,000 UNIT/1 ML VIAL SC SCH ×2 (14:08→20:42)
[2019-03-01] MEDS: ALBUTEROL/IPRATROPIUM (NEB) 3 ML AMP HHN SCH ×2 (14:10→21:29)
--- NOTE | 2019-03-01 16:47 | CONS ---
Assessment/Plan Assessment/Plan Assessment/Plan (Daily) IMP: 1. Multifocal patchy centrilobular nodular opacities--likely 2/2 infectious bronchiolitis r/o aspiration and NTB especially SHREYL 2. History of H&N cancer s/p XRT and chemo--no evidence of recurrence 3. +/- COPD exacerbation 4. Severe emphysema RECS: 1. Bd's/CPT as needed 2. Abx 3. Sputum GS and Cx 4. Sputum AFB x 3 for SHERYL (will hold off ordering for now) 5. Treat for COPD exacerbation 6. Initiate LAMA/LABA/ICS prior to d/c 7. 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 Patient states that he went to the ER due to 3 days of worsening cough and generalized malaise and weakness. Otherwise patient states that before he was in his normal state of health, patient ambulates on his own and other than some mild chronic difficulty eating due to radiation scarring he has no other acute complaints at this time. Patient states that he is currently not on chemotherapy or radiation as his oncologist stated that there is nothing else to do for him in the last time he saw an oncologist was approximately 1 or 1 and 1/2 years ago. Patient currently follows up with a primary care provider and currently takes no medications. Constitutional: no complaints, improved Eyes: no complaints ENT: no complaints Respiratory: cough, shortness of breath, sputum Cardiovascular: no complaints, lightheadedness Gastrointestinal: no complaints Genitourinary: no complaints Musculoskeletal: no complaints Skin: no complaints Neurologic: no complaints Endocrine: no complaints Lymphatic: no complaints Psychological: no complaints Immunologic: no complaints Past Medical History see HPI Home Meds Discontinued Scripts Hydrocodone/Acetaminophen ([place] 5-325 Tablet) 1 Each Tablet, 1 TAB PO Q6H PRN for PAIN, #7 TAB Prov:EKMEKJIAN,NELLIE R. MD 01/30/19 Albuterol Sulfate* (Proair HFA*) 8.5 Gm Hfa.aer.ad, 2 PUFF INH Q4, #1 INHALER Prov:JOANNE CHRISTINE MD 08/04/18 Dextromethorphan Hb-Promethazine Hcl* (Promethazine DM* Syrup) 473 Ml Syrup, 10 ML PO Q6 PRN for COUGH, #120 ML Prov:JOANNE CHRISTINE MD 08/04/18 Azithromycin* (Zithromax*) 250 Mg Tablet, 250 MG PO .ZPACK DIRECTED, #6 TAB TAKE 500 MG (2 TABS) THE FIRST DAY THEN 250 MG (1 TAB) DAYS 2-5 Prov:JOANNE CHRISTINE MD 08/04/18 Medications Current Medications IV Flush (NS 3 ml) 3 ml PER PROTOCOL IV ; Start 03/01/19 at 13:30 Ondansetron HCl (Zofran Inj) 4 mg Q6H PRN IV NAUSEA/VOMITING; Start 03/01/19 at 13:30 Acetaminophen (Tylenol Tab) 650 mg Q6H PRN PO .PAIN 1-3 OR TEMP; Start 03/01/19 at 13:30 Acetaminophen/ Hydrocodone Bitart ([place] (5/325)) 1 tab Q6H PRN PO .PAIN 4-6 Last administered on 03/01/19at 14:08; Admin Dose 1 TAB; Start 03/01/19 at 13:30 Morphine Sulfate (morphine) 2 mg Q4H PRN IV .PAIN 7-10 Last administered on 03/01/19at 14:08; Admin Dose 2 MG; Start 03/01/19 at 13:30 Heparin Sodium (Porcine) (Heparin (5000 Units/1ml)) 5,000 unit Q12 SC Last administered on 03/01/19 14:08; Admin Dose 5,000 UNIT; Start 03/01/19 at 13:30 Sodium Chloride 1,000 ml @ 50 mls/hr Q20H IV Last administered on 03/01/19 14:07; Admin Dose 50 MLS/HR; Start 03/01/19 at 13:30; Stop 03/02/19 at 09:29 Piperacillin Sod/ Tazobactam Sod 100 ml @ 200 mls/hr Q6 IVPB Last administered on 03/01/19at 14:08; Admin Dose 200 MLS/HR; Start 03/01/19 at 14:00 Albuterol/ Ipratropium (Duoneb) 3 ml Q6HWA RESP THERAPY HHN Last administered on 03/01/19at 14:10; Admin Dose 3 ML; Start 03/01/19 at 14:00 Albuterol/ Ipratropium (Duoneb) 3 ml Q2H RESP THERAPY PRN HHN shortness of breath; Start 03/01/19 at 14:00 Budesonide (Pulmicort (Neb)) 0.5 mg BID RESP THERAPY HHN ; Start 03/01/19 at 20:00 Allergies: Coded Allergies: paroxetine (Verified Allergy, Unknown, 03/01/18) Past Surgical History Past Surgical Hx: no surgical history Social History Alcohol Use: occasionally Smoking Status: Current every day smoker Drug Use: none Exam/Review of Systems Exam Vitals Vital Signs Date Temp Pulse Resp B/P (MAP) Pulse Ox O2 O2 Flow FiO2 Time Delivery Rate 03/01/19 8.0 14:26 03/01/19 78 20 96 21 14:12 03/01/19 98.0 101/70 13:05 (80) Constitutional: alert, oriented, frail Head: normocephalic, atraumatic Eyes: nl conjunctiva, EOMI, nl lids, nl sclera ENMT: nl external ears & nose, nl lips & teeth, nl nasal mucosa & septum, muc cullen pink and moist Neck: supple, non-tender Respiratory: diminished breath sounds Cardiovascular: regular rate and rhythm Gastrointestinal: soft, nl liver, spleen, non-tender Musculoskeletal: nl extremities to inspection Extremities: normal pulses Neurological: PATIENT ACCOUNTS MANAGER II-XII intact, nl mental status, nl speech, nl strength Results Result Diagram: 03/01/19 1330 03/01/19 1330 Results 24hrs Laboratory Tests Test 03/01/19 13:30 White Blood Count 10.1 # Red Blood Count 4.12 L Hemoglobin 12.3 L Hematocrit 37.6 L Mean Corpuscular Volume 91.3 Mean Corpuscular Hemoglobin 29.9 Mean Corpuscular Hemoglobin Concent 32.7 Red Cell Distribution Width 14.4 Platelet Count 164 # Mean Platelet Volume 9.8 Immature Granulocytes % 0.400 Neutrophils % 91.4 H Lymphocytes % 3.5 L Monocytes % 4.2 Eosinophils % 0.0 Basophils % 0.5 Nucleated Red Blood Cells % 0.0 Immature Granulocytes # 0.040 H Neutrophils # 9.3 H Lymphocytes # 0.4 L Monocytes # 0.4 Eosinophils # 0.0 Basophils # 0.1 Nucleated Red Blood Cells # 0.0 Sodium Level 135 Potassium Level 4.4 Chloride Level 98 Carbon Dioxide Level 28 Anion Gap 9 Blood Urea Nitrogen 7 Creatinine 0.43 L Est Glomerular Filtrat Rate mL/min > 60 Glucose Level 82 Calcium Level 8.6 Magnesium Level 1.7 Total Bilirubin 0.5 Direct Bilirubin 0.00 Indirect Bilirubin 0.5 Aspartate Amino Transf (AST/SGOT) 51 H Alanine Aminotransferase (ALT/SGPT) 50 Alkaline Phosphatase 77 Troponin I < 0.012 Total Protein 7.2 Albumin 3.7 Globulin 3.50 H Albumin/Globulin Ratio 1.05 Medications Medication Current Medications IV Flush (NS 3 ml) 3 ml PER PROTOCOL IV ; Start 03/01/19 at 13:30 Ondansetron HCl (Zofran Inj) 4 mg Q6H PRN IV NAUSEA/VOMITING; Start 03/01/19 at 13:30 Acetaminophen (Tylenol Tab) 650 mg Q6H PRN PO .PAIN 1-3 OR TEMP; Start 03/01/19 at 13:30 Acetaminophen/ Hydrocodone Bitart ([place] (5/325)) 1 tab Q6H PRN PO .PAIN 4-6 Last administered on 03/01/19at 14:08; Admin Dose 1 TAB; Start 03/01/19 at 13:30 Morphine Sulfate (morphine) 2 mg Q4H PRN IV .PAIN 7-10 Last administered on 03/01/19at 14:08; Admin Dose 2 MG; Start 03/01/19 at 13:30 Heparin Sodium (Porcine) (Heparin (5000 Units/1ml)) 5,000 unit Q12 SC Last administered on 03/01/19at 14:08; Admin Dose 5,000 UNIT; Start 03/01/19 at 13:30 Sodium Chloride 1,000 ml @ 50 mls/hr Q20H IV Last administered on 03/01/19at 14:07; Admin Dose 50 MLS/HR; Start 03/01/19 at 13:30; Stop 03/02/19 at 09:29 Piperacillin Sod/ Tazobactam Sod 100 ml @ 200 mls/hr Q6 IVPB Last administered on 03/01/19at 14:08; Admin Dose 200 MLS/HR; Start 03/01/19 at 14:00 Albuterol/ Ipratropium (Duoneb) 3 ml Q6HWA RESP THERAPY HHN Last administered on 03/01/19at 14:10; Admin Dose 3 ML; Start 03/01/19 at 14:00 Albuterol/ Ipratropium (Duoneb) 3 ml Q2H RESP THERAPY PRN HHN shortness of breath; Start 03/01/19 at 14:00 Budesonide (Pulmicort (Neb)) 0.5 mg BID RESP THERAPY HHN ; Start 03/01/19 at 20:00 ELIE LEVIN MD Mar 01, 2019 16:47
--- NOTE | 2019-03-01 16:58 | CONS ---
DATE OF ADMISSION: 03/01/2019 DATE OF CONSULTATION: 03/01/2019 TYPE OF CONSULTATION: Infectious disease. REASON FOR CONSULTATION: Antibiotic management. HISTORY OF PRESENT ILLNESS: Brendon Lund is a 53-year-old male who comes in with cough and shortnes s of breath of 3 days' duration. He comes in from [facility] with diagnosis of pneumonia . The patient has a history of colon cancer. He presented to [facility] with diagnosis of pneumonia. He has been coughing and having shortness of breath for the past 3 days associated wit h production of greenish sputum. He has no fever or chills. He complains of left-sided chest pain a s well which has been constant, aching, nonradiating with no alleviating factors, worsened with cough . He was diagnosed with pneumonia, hyponatremia, mild hypokalemia and transferred to [facility]. Past problems include: CA of the colon, status post colostomy. He also had right wrist surge ry. He has psychiatric disorders. He is depressed with schizoaffective disorder. He has a history of throat cancer as well as colon cancer. FAMILY HISTORY: Noncontributory. SOCIAL HISTORY: He does not drink, but he smokes half pack of cigarettes a day and he uses marijuana . PAST MEDICAL HISTORY: Otherwise is as outlined. ALLERGIES: THE PATIENT IS ALLERGIC TO: 1. FLUOXETINE. 2. PROZAC. REVIEW OF SYSTEMS: Noncontributory. PHYSICAL EXAMINATION: GENERAL: He is a well-developed, somewhat ill-appearing male who is alert, responsive, in no acute d istress. VITAL SIGNS: Stable. He is afebrile. SKIN: Without generalized rash. HEENT: Within normal limits. NECK: Supple. LYMPH NODES: None palpable. CHEST: Decreased breath sounds at the bases. HEART: Without murmur or gallop. ABDOMEN: Colostomy is noted to be clean, dry and intact. Soft, nontender. Normal bowel sounds. EXTREMITIES: Without cyanosis, clubbing or edema. RECTAL AND GENITAL: Deferred. NEUROLOGIC: No focal neurological abnormalities. HOSPITAL COURSE: The patient was started on Zosyn. The patient is hemodynamically stable. No evide nce of respiratory failure. The patient is currently not on chemotherapy or radiation. He follows u p with his primary care provider. He has multifocal micronodular pneumonia seen on CT angiogram done at [facility]. Pulmonary was consulted. They discussed the possibility of possible start of cancer versus multifocal pneumonia. Cultures were done. History of pharyngeal carcinoma and radiati on and chemotherapy which was stopped due to bowel rupture and subsequent colostomy. COPD seen on C T angiogram. The patient is a daily smoker, but denies knowing that he had COPD. his white count is 10.1, H and H is 12.3 and 37.4, platelet count 164 with 91% neutrophils. BUN and creatinine are 7/0 .43. Liver function tests are essentially closed to normal with an AST of 51, ALT 50, alkaline phosp hatase is 77. We will therefore continue him on his current therapy of Zosyn. Blood cultures have b een ordered. I will dictate my findings to the hospitalist. Dictated By: YUE JARAMILLO MD, JD/NTS Conf#: [id number] DID#: [id number] CC: VIRA BENJAMIN MD; DOLORES HENLEY MD;*EndCC*
[2019-03-01] MEDS ORDERED: predniSONE 50 MG TAB PO ONE (17:00)
[2019-03-01 17:08] VITALS: BP 101/63; PULSE 89; RESP 18
[2019-03-01 17:09] VITALS: Ht 182.9 cm; Wt 57.3 kg
[2019-03-01 20:00] VITALS: BP 124/63; PULSE 102; RESP 17
[2019-03-01] MEDS: BUDESONIDE (NEB) 0.5MG/2ML AMP HHN SCH (21:29)
[2019-03-01] MEDS: AZITHROMYCIN 500 MG TAB PO SCH (22:09)
[2019-03-02 02:00] VITALS: BP 110/68; PULSE 84; RESP 17
[2019-03-02] MEDS: PIPER-TAZO 3.375 GM IV (PMX) 100 ML IVPB SCH ×3 (05:43→17:06)
[2019-03-02] MEDS: BUDESONIDE (NEB) 0.5MG/2ML AMP HHN SCH ×2 (07:32→19:15)
[2019-03-02] MEDS: ALBUTEROL/IPRATROPIUM (NEB) 3 ML AMP HHN SCH ×3 (07:32→19:15)
[2019-03-02 08:00] VITALS: BP 115/55; PULSE 77; RESP 18
[2019-03-02] MEDS: HEPARIN 5,000 UNIT/1 ML VIAL SC SCH ×2 (08:41→21:11)
[2019-03-02] MEDS: AZITHROMYCIN 500 MG TAB PO SCH (08:41)
[2019-03-02] MEDS: morphine 2 MG INJ IV PRN ×4 (08:44→21:18)
--- NOTE | 2019-03-02 11:12 | CONS ---
Consultation Date/Type/Reason Admit Date/Time Mar 01, 2019 at 13:13 Initial Consult Date 03/01/19 Type of Consult Pulmonary Patient's condition is improving. Shortness of breath is improving patient come to the very scant cough. Denies any dysphasia. General exam; middle-aged male, awake alert, currently no distress. HEENT exam; supple neck, no JVD. No lymphadenopathy. Midline trachea. No thyromegaly. Patient has few missing teeth. Chest exam; clear to auscultation bilaterally. S1-S2 audible, no murmurs. Regular rhythm. Abdomen exam; soft, no organomegaly. Nontender. Bowel sounds audible. Extremity exam; no peripheral edema clubbing. DIRECTOR CASE exam; no focal deficit. Assessment and recommendations; 1. Patient with history of head and cancer status post RT and chemotherapy admitted for mild right lower lobe pneumonia with interval clinical improvement. 2. Patient is a current smoker. However lung exam is quite clear and not revealing any wheezing. Continue current supportive care. Consider discharge in 24 to 48 hours on oral antibiotics. Requesting Provider: VIELKA ELAINE Date/Time of Note DATE: 03/02/19 TIME: 11:09 Exam/Review of Systems Exam Vitals Vital Signs Date Temp Pulse Resp B/P (MAP) Pulse Ox O2 O2 Flow FiO2 Time Delivery Rate 03/02/19 98.2 77 18 115/55 95 08:00 (75) 03/02/19 21 07:34 03/01/19 Room Air 17:08 03/01/19 8.0 14:26 Intake and Output 03/01/19 03/01/19 03/02/19 1515:00 23:00 07:00 IntakeIntake Total 300 ml 800 ml OutputOutput Total 500 ml BalanceBalance 300 ml 300 ml Results Result Diagram: 03/02/19 0656 03/02/19 0656 Results 24hrs Laboratory Tests Test 03/01/19 13:30 03/02/19 06:56 White Blood Count 10.1 # 11.1 H Red Blood Count 4.12 L 3.74 L Hemoglobin 12.3 L 11.1 L Hematocrit 37.6 L 33.7 L Mean Corpuscular Volume 91.3 90.1 Mean Corpuscular Hemoglobin 29.9 29.7 Mean Corpuscular Hemoglobin Concent 32.7 32.9 Red Cell Distribution Width 14.4 14.3 Platelet Count 164 # 229 # Mean Platelet Volume 9.8 9.5 Immature Granulocytes % 0.400 0.900 H Neutrophils % 91.4 H 95.5 H Lymphocytes % 3.5 L 1.9 L Monocytes % 4.2 1.6 Eosinophils % 0.0 0.0 Basophils % 0.5 0.1 Nucleated Red Blood Cells % 0.0 0.0 Immature Granulocytes # 0.040 H 0.100 H Neutrophils # 9.3 H 10.6 H Lymphocytes # 0.4 L 0.2 L Monocytes # 0.4 0.2 L Eosinophils # 0.0 0.0 Basophils # 0.1 0.0 Nucleated Red Blood Cells # 0.0 0.0 Sodium Level 135 137 Potassium Level 4.4 4.7 Chloride Level 98 99 Carbon Dioxide Level 28 31 Anion Gap 9 7 Blood Urea Nitrogen 7 6 L Creatinine 0.43 L 0.51 L Est Glomerular Filtrat Rate mL/min > 60 > 60 Glucose Level 82 169 Calcium Level 8.6 8.5 Magnesium Level 1.7 2.0 Total Bilirubin 0.5 0.3 Direct Bilirubin 0.00 0.00 Indirect Bilirubin 0.5 0.3 Aspartate Amino Transf (AST/SGOT) 51 H 32 Alanine Aminotransferase (ALT/SGPT) 50 40 Alkaline Phosphatase 77 68 Troponin I < 0.012 Total Protein 7.2 6.4 Albumin 3.7 3.1 L Globulin 3.50 H 3.30 H Albumin/Globulin Ratio 1.05 0.93 Hemoglobin A1c 5.2 Triglycerides Level 56 Cholesterol Level 93 L LDL Cholesterol, Calculated 59 HDL Cholesterol 23 L Cholesterol/HDL Ratio 4.0 Thyroid Stimulating Hormone (TSH) 1.050 Medications Medication Current Medications IV Flush (NS 3 ml) 3 ml PER PROTOCOL IV ; Start 03/01/19 at 13:30 Ondansetron HCl (Zofran Inj) 4 mg Q6H PRN IV NAUSEA/VOMITING; Start 03/01/19 at 13:30 Acetaminophen (Tylenol Tab) 650 mg Q6H PRN PO .PAIN 1-3 OR TEMP; Start 03/01/19 at 13:30 Acetaminophen/ Hydrocodone Bitart ([place] (5/325)) 1 tab Q6H PRN PO .PAIN 4-6 Last administered on 03/01/19at 14:08; Admin Dose 1 TAB; Start 03/01/19 at 13:30 Morphine Sulfate (morphine) 2 mg Q4H PRN IV .PAIN 7-10 Last administered on 03/02/19 08:44; Admin Dose 2 MG; Start 03/01/19 at 13:30 Heparin Sodium (Porcine) (Heparin (5000 Units/1ml)) 5,000 unit Q12 SC Last administered on 03/02/19 08:41; Admin Dose 5,000 UNIT; Start 03/01/19 at 13:30 Piperacillin Sod/ Tazobactam Sod 100 ml @ 200 mls/hr Q6 IVPB Last administered on 03/02/19 05:43; Admin Dose 200 MLS/HR; Start 03/01/19 at 14:00 Albuterol/ Ipratropium (Duoneb) 3 ml Q6HWA RESP THERAPY HHN Last administered on 03/02/19 07:32; Admin Dose 3 ML; Start 03/01/19 at 14:00 Albuterol/ Ipratropium (Duoneb) 3 ml Q2H RESP THERAPY PRN HHN shortness of breath; Start 03/01/19 at 14:00 Budesonide (Pulmicort (Neb)) 0.5 mg BID RESP THERAPY HHN Last administered on 03/02/19 07:32; Admin Dose 0.5 MG; Start 03/01/19 at 20:00 Azithromycin (Zithromax) 500 mg DAILY PO Last administered on 03/02/19 08:41; Admin Dose 500 MG; Start 03/01/19 at 20:00; Stop 03/03/19 at 09:01 LIZANDRO OLIVER Mar 02, 2019 11:12
--- NOTE | 2019-03-02 12:38 | PN ---
Date/Time of Note Date/Time of Note DATE: 03/02/19 TIME: 12:36 Assessment/Plan VTE Prophylaxis Risk score (from Nsg)>0 risk: 3 SCD applied (from Nsg): Yes Pharmacological prophylaxis: heparin Lines/Catheters IV Catheter Type (from Nrs): Peripheral IV Assessment/Plan Assessment/Plan 53 yo man history of pharyngeal cancer and newly diagnosed COPD presents with pneumonia. Multifocal micronodular pneumonia -Seen on CT angiogram done at transferring facility -Broad-spectrum IV antibiotic -Pulmonary consulted. Recommendations appreciated regarding possible spread of cancer if any versus multifocal pneumonia -Infectious disease also on board to direct IV antibiotic -Cultures taken, pending. -Also plan for video swallow eval tomorrow to rule out aspiration. History of pharyngeal carcinoma -Unknown if in true remission, patient states that his last visit with his oncologist was a year ago, has a history of radiation therapy and chemotherapy, according to patient chemotherapy had to be stopped due to bowel rupture and subsequent colostomy Electrolyte derangement -Patient has very mild low sodium and very mild low potassium at outside facility however received fluids, will reorder labs and if stable will monitor -Replete as needed COPD seen on CT angiogram -bullous COPD, patient is a daily smoker, denies knowing that had COPD -DuoNeb and budesonide nebulizer for now given cough/resp symptoms Questional history of depression and schizoaffective disorder -Not on any medications, patient appears stable, monitor T7 Schmorl's node -Asymptomatic at this time, monitor closely History of colostomy -Patient unsure exactly what happened to his bowel but stated that his bowel had a rupture -Colostomy care Disposition -Continue IV antibiotics, video swallow eval tomorrow. Result Diagram: 03/02/19 0656 03/02/19 0656 Subjective 24 Hr Interval Summary Free Text/Dictation No acute overnight events. Patient tolerating diet. Feeling good. No complaints. Exam/Review of Systems Exam Vitals Vital Signs Date Temp Pulse Resp B/P (MAP) Pulse Ox O2 O2 Flow FiO2 Time Delivery Rate 03/02/19 98.2 77 18 115/55 95 08:00 (75) 03/02/19 21 07:34 03/01/19 Room Air 17:08 03/01/19 8.0 14:26 Intake and Output 03/01/19 03/01/19 03/02/19 1515:00 23:00 07:00 IntakeIntake Total 300 ml 800 ml OutputOutput Total 500 ml BalanceBalance 300 ml 300 ml Exam General: Patient is laying in bed and answers questions appropriately Mentation: Patient is alert and oriented 4, Head: Normocephalic atraumatic Eyes: EOMI, pupils reactive to light Neck: Supple, nontender, midline Respiratory: Coarse to auscultation bilaterally Cardiovascular: regular rate, no obvious murmurs Gastrointestinal: non-tender to palpation, bowel sounds heard. Neurological: Moves all extremities spontaneously Results Results 24hrs Laboratory Tests Test 03/01/19 13:30 03/02/19 06:56 White Blood Count 10.1 # 11.1 H Red Blood Count 4.12 L 3.74 L Hemoglobin 12.3 L 11.1 L Hematocrit 37.6 L 33.7 L Mean Corpuscular Volume 91.3 90.1 Mean Corpuscular Hemoglobin 29.9 29.7 Mean Corpuscular Hemoglobin Concent 32.7 32.9 Red Cell Distribution Width 14.4 14.3 Platelet Count 164 # 229 # Mean Platelet Volume 9.8 9.5 Immature Granulocytes % 0.400 0.900 H Neutrophils % 91.4 H 95.5 H Lymphocytes % 3.5 L 1.9 L Monocytes % 4.2 1.6 Eosinophils % 0.0 0.0 Basophils % 0.5 0.1 Nucleated Red Blood Cells % 0.0 0.0 Immature Granulocytes # 0.040 H 0.100 H Neutrophils # 9.3 H 10.6 H Lymphocytes # 0.4 L 0.2 L Monocytes # 0.4 0.2 L Eosinophils # 0.0 0.0 Basophils # 0.1 0.0 Nucleated Red Blood Cells # 0.0 0.0 Sodium Level 135 137 Potassium Level 4.4 4.7 Chloride Level 98 99 Carbon Dioxide Level 28 31 Anion Gap 9 7 Blood Urea Nitrogen 7 6 L Creatinine 0.43 L 0.51 L Est Glomerular Filtrat Rate mL/min > 60 > 60 Glucose Level 82 169 Calcium Level 8.6 8.5 Magnesium Level 1.7 2.0 Total Bilirubin 0.5 0.3 Direct Bilirubin 0.00 0.00 Indirect Bilirubin 0.5 0.3 Aspartate Amino Transf (AST/SGOT) 51 H 32 Alanine Aminotransferase (ALT/SGPT) 50 40 Alkaline Phosphatase 77 68 Troponin I < 0.012 Total Protein 7.2 6.4 Albumin 3.7 3.1 L Globulin 3.50 H 3.30 H Albumin/Globulin Ratio 1.05 0.93 Hemoglobin A1c 5.2 Triglycerides Level 56 Cholesterol Level 93 L LDL Cholesterol, Calculated 59 HDL Cholesterol 23 L Cholesterol/HDL Ratio 4.0 Thyroid Stimulating Hormone (TSH) 1.050 Medications Medication Current Medications IV Flush (NS 3 ml) 3 ml PER PROTOCOL IV ; Start 03/01/19 at 13:30 Ondansetron HCl (Zofran Inj) 4 mg Q6H PRN IV NAUSEA/VOMITING; Start 03/01/19 at 13:30 Acetaminophen (Tylenol Tab) 650 mg Q6H PRN PO .PAIN 1-3 OR TEMP; Start 03/01/19 at 13:30 Acetaminophen/ Hydrocodone Bitart ([place] (5/325)) 1 tab Q6H PRN PO .PAIN 4-6 Last administered on 03/01/19 14:08; Admin Dose 1 TAB; Start 03/01/19 at 13:30 Morphine Sulfate (morphine) 2 mg Q4H PRN IV .PAIN 7-10 Last administered on 03/02/19 08:44; Admin Dose 2 MG; Start 03/01/19 at 13:30 Heparin Sodium (Porcine) (Heparin (5000 Units/1ml)) 5,000 unit Q12 SC Last administered on 03/02/19 08:41; Admin Dose 5,000 UNIT; Start 03/01/19 at 13:30 Piperacillin Sod/ Tazobactam Sod 100 ml @ 200 mls/hr Q6 IVPB Last administered on 03/02/19 11:24; Admin Dose 200 MLS/HR; Start 03/01/19 at 14:00 Albuterol/ Ipratropium (Duoneb) 3 ml Q6HWA RESP THERAPY HHN Last administered on 03/02/19 07:32; Admin Dose 3 ML; Start 03/01/19 at 14:00 Albuterol/ Ipratropium (Duoneb) 3 ml Q2H RESP THERAPY PRN HHN shortness of breath; Start 03/01/19 at 14:00 Budesonide (Pulmicort (Neb)) 0.5 mg BID RESP THERAPY HHN Last administered on 03/02/19 07:32; Admin Dose 0.5 MG; Start 03/01/19 at 20:00 Azithromycin (Zithromax) 500 mg DAILY PO Last administered on 03/02/19at 08:41; Admin Dose 500 MG; Start 03/01/19 at 20:00; Stop 03/03/19 at 09:01 CIERRA ANNE MD Mar 02, 2019 12:38
[2019-03-02 14:12] VITALS: BP 112/58; PULSE 83; RESP 19
--- NOTE | 2019-03-02 15:14 | CONS ---
Assessment/Plan Assessment/Plan Hospital Course (Demo Recall) No acute changes overnight patient is sleeping looks comfortable, afebrile WBC 11.1 platelets 229 neutrophils 95.5 BUN 6 creatinine 0.51 Microbiology: Blood cultures negative Antimicrobials: Zithromax, Zosyn Physical examination: This is a well-developed middle-aged white male who is in no distress. Head atraumatic normocephalic. Neck is supple. Chest rise symmetrical, breath sounds diminished on the right. Heart: S1-S2. Abdomen soft bowel sounds present. Extremities without cyanosis. Assessment: 1. Pneumonia likely aspiration 2. History of pharyngeal carcinoma Plan: Patient is stable, on appropriate antibiotic regimen, pending swallow evaluation, follow pulmonary recommendations Consultation Date/Type/Reason Admit Date/Time Mar 01, 2019 at 13:13 Initial Consult Date 03/01/19 Type of Consult id Requesting Provider: VIELKA ELAINE Date/Time of Note DATE: 03/02/19 TIME: 15:13 Exam/Review of Systems Exam Vitals Vital Signs Date Temp Pulse Resp B/P (MAP) Pulse Ox O2 O2 Flow FiO2 Time Delivery Rate 03/02/19 97.9 83 19 112/58 98 14:12 (76) 03/02/19 21 07:34 03/01/19 Room Air 17:08 03/01/19 8.0 14:26 Intake and Output 03/01/19 03/01/19 03/02/19 1515:00 23:00 07:00 IntakeIntake Total 300 ml 800 ml OutputOutput Total 500 ml BalanceBalance 300 ml 300 ml Results Result Diagram: 03/02/19 0656 03/02/19 0656 Results 24hrs Laboratory Tests Test 03/02/19 06:56 White Blood Count 11.1 H Red Blood Count 3.74 L Hemoglobin 11.1 L Hematocrit 33.7 L Mean Corpuscular Volume 90.1 Mean Corpuscular Hemoglobin 29.7 Mean Corpuscular Hemoglobin Concent 32.9 Red Cell Distribution Width 14.3 Platelet Count 229 # Mean Platelet Volume 9.5 Immature Granulocytes % 0.900 H Neutrophils % 95.5 H Lymphocytes % 1.9 L Monocytes % 1.6 Eosinophils % 0.0 Basophils % 0.1 Nucleated Red Blood Cells % 0.0 Immature Granulocytes # 0.100 H Neutrophils # 10.6 H Lymphocytes # 0.2 L Monocytes # 0.2 L Eosinophils # 0.0 Basophils # 0.0 Nucleated Red Blood Cells # 0.0 Sodium Level 137 Potassium Level 4.7 Chloride Level 99 Carbon Dioxide Level 31 Anion Gap 7 Blood Urea Nitrogen 6 L Creatinine 0.51 L Est Glomerular Filtrat Rate mL/min > 60 Glucose Level 169 Hemoglobin A1c 5.2 Calcium Level 8.5 Magnesium Level 2.0 Total Bilirubin 0.3 Direct Bilirubin 0.00 Indirect Bilirubin 0.3 Aspartate Amino Transf (AST/SGOT) 32 Alanine Aminotransferase (ALT/SGPT) 40 Alkaline Phosphatase 68 Total Protein 6.4 Albumin 3.1 L Globulin 3.30 H Albumin/Globulin Ratio 0.93 Triglycerides Level 56 Cholesterol Level 93 L LDL Cholesterol, Calculated 59 HDL Cholesterol 23 L Cholesterol/HDL Ratio 4.0 Thyroid Stimulating Hormone (TSH) 1.050 Medications Medication Current Medications IV Flush (NS 3 ml) 3 ml PER PROTOCOL IV ; Start 03/01/19 at 13:30 Ondansetron HCl (Zofran Inj) 4 mg Q6H PRN IV NAUSEA/VOMITING; Start 03/01/19 at 13:30 Acetaminophen (Tylenol Tab) 650 mg Q6H PRN PO .PAIN 1-3 OR TEMP; Start 03/01/19 at 13:30 Acetaminophen/ Hydrocodone Bitart ([place] (5/325)) 1 tab Q6H PRN PO .PAIN 4-6 Last administered on 03/01/19 14:08; Admin Dose 1 TAB; Start 03/01/19 at 13:30 Morphine Sulfate (morphine) 2 mg Q4H PRN IV .PAIN 7-10 Last administered on 03/02/19 12:51; Admin Dose 2 MG; Start 03/01/19 at 13:30 Heparin Sodium (Porcine) (Heparin (5000 Units/1ml)) 5,000 unit Q12 SC Last administered on 03/02/19 08:41; Admin Dose 5,000 UNIT; Start 03/01/19 at 13:30 Piperacillin Sod/ Tazobactam Sod 100 ml @ 200 mls/hr Q6 IVPB Last administered on 03/02/19 11:24; Admin Dose 200 MLS/HR; Start 03/01/19 at 14:00 Albuterol/ Ipratropium (Duoneb) 3 ml Q6HWA RESP THERAPY HHN Last administered on 8/5/19at 07:32; Admin Dose 3 ML; Start 03/01/19 at 14:00 Albuterol/ Ipratropium (Duoneb) 3 ml Q2H RESP THERAPY PRN HHN shortness of breath; Start 03/01/19 at 14:00 Budesonide (Pulmicort (Neb)) 0.5 mg BID RESP THERAPY HHN Last administered on 03/02/19at 07:32; Admin Dose 0.5 MG; Start 03/01/19 at 20:00 Azithromycin (Zithromax) 500 mg DAILY PO Last administered on 03/02/19at 08:41; Admin Dose 500 MG; Start 03/01/19 at 20:00; Stop 03/03/19 at 09:01 COLTON PRYOR NP Mar 02, 2019 15:14
[2019-03-02 20:00] VITALS: BP 102/59; PULSE 86; RESP 17
[2019-03-03] MEDS: PIPER-TAZO 3.375 GM IV (PMX) 100 ML IVPB SCH ×4 (00:22→17:00)
[2019-03-03 02:26] VITALS: BP 93/52; PULSE 79; RESP 18
[2019-03-03] MEDS: morphine 2 MG INJ IV PRN ×4 (06:00→21:08)
[2019-03-03] MEDS: ALBUTEROL/IPRATROPIUM (NEB) 3 ML AMP HHN SCH ×3 (07:15→20:22)
[2019-03-03] MEDS: BUDESONIDE (NEB) 0.5MG/2ML AMP HHN SCH ×2 (07:16→20:22)
[2019-03-03 07:56] VITALS: BP 101/70; PULSE 91; RESP 17
[2019-03-03] MEDS: HEPARIN 5,000 UNIT/1 ML VIAL SC SCH ×2 (08:30→20:15)
[2019-03-03] MEDS: AZITHROMYCIN 500 MG TAB PO SCH (08:31)
--- NOTE | 2019-03-03 12:19 | CONS ---
Consult Date/Type/Reason Admit Date/Time Mar 01, 2019 at 13:13 Initial Consult Date 03/01/19 Type of Consult Pulmonary Requesting Provider: VIELKA ELAINE Date/Time of Note DATE: 03/03/19 TIME: 12:17 Subjective Patient slowly improving. Objective Vital Signs Date Temp Pulse Resp B/P (MAP) Pulse Ox O2 O2 Flow FiO2 Time Delivery Rate 03/03/19 98.0 91 17 101/70 96 07:56 (80) 03/03/19 21 07:16 03/01/19 Room Air 17:08 03/01/19 8.0 14:26 Intake and Output 03/02/19 03/02/19 03/03/19 1515:00 23:00 07:00 IntakeIntake Total 1020 ml 340 ml 1140 ml OutputOutput Total 250 ml 1600 ml BalanceBalance 770 ml 340 ml -460 ml Exam GENERAL: VITAL SIGNS: per chart NECK: Supple. No JVD or lymphadenopathy. CARDIAC EXAM: S1, S2. No added sounds or murmurs. CHEST: Diminished air entry bilaterally ABDOMEN: Soft, nontender. No guarding or rebound. EXTREMITIES: No cyanosis, clubbing or edema. NEUROLOGIC: Generalized weakness. No focal deficits. Well-nourished well- developed gentleman comfortable at rest Vent Setting Fraction of Inspired Oxygen pe: 21 Results/Medications Result Diagram: 03/02/19 0656 03/02/19 0656 Medications Current Medications IV Flush (NS 3 ml) 3 ml PER PROTOCOL IV ; Start 03/01/19 at 13:30 Ondansetron HCl (Zofran Inj) 4 mg Q6H PRN IV NAUSEA/VOMITING; Start 03/01/19 at 13:30 Acetaminophen (Tylenol Tab) 650 mg Q6H PRN PO .PAIN 1-3 OR TEMP; Start 03/01/19 at 13:30 Acetaminophen/ Hydrocodone Bitart ([place] (5/325)) 1 tab Q6H PRN PO .PAIN 4-6 Last administered on 03/01/19at 14:08; Admin Dose 1 TAB; Start 03/01/19 at 13:30 Morphine Sulfate (morphine) 2 mg Q4H PRN IV .PAIN 7-10 Last administered on 03/03/19at 11:08; Admin Dose 2 MG; Start 03/01/19 at 13:30 Heparin Sodium (Porcine) (Heparin (5000 Units/1ml)) 5,000 unit Q12 SC Last administered on 03/03/19at 08:30; Admin Dose 5,000 UNIT; Start 03/01/19 at 13:30 Piperacillin Sod/ Tazobactam Sod 100 ml @ 200 mls/hr Q6 IVPB Last administered on 03/03/19at 11:07; Admin Dose 200 MLS/HR; Start 03/01/19 at 14:00 Albuterol/ Ipratropium (Duoneb) 3 ml Q6HWA RESP THERAPY HHN Last administered on 03/03/19at 07:15; Admin Dose 3 ML; Start 03/01/19 at 14:00 Albuterol/ Ipratropium (Duoneb) 3 ml Q2H RESP THERAPY PRN HHN shortness of breath; Start 03/01/19 at 14:00 Budesonide (Pulmicort (Neb)) 0.5 mg BID RESP THERAPY HHN Last administered on 03/03/19at 07:16; Admin Dose 0.5 MG; Start 03/01/19 at 20:00 Assessment/Plan Hospital Course (Demo Recall) IMP: 1. Multifocal patchy centrilobular nodular opacities--likely 2/2 infectious bronchiolitis r/o aspiration and NTB especially SHERYL 2. History of H&N cancer s/p XRT and chemo--no evidence of recurrence 3. +/- COPD exacerbation 4. Severe emphysema RECS: 1. Bd's/CPT as needed 2. Abx 3. Sputum GS and Cx 4. Sputum AFB x 3 for SHERYL ? 5. Steroids for COPD exacerbation 6. Initiate LAMA/LABA/ICS prior to d/c 7. DVT prophylaxis 8. Follow-up with me as an outpatient 9. Outpatient pulmonary function testing DOLORES HENLEY MD, [facility] Mar 03, 2019 12:19
[2019-03-03] MEDS ORDERED: BARIUM SULFATE 135 ML (E-Z HD) PO ONE (12:35)
[2019-03-03 14:13] VITALS: BP 118/78; PULSE 74; RESP 18
--- NOTE | 2019-03-03 14:24 | PN ---
Date/Time of Note Date/Time of Note DATE: 03/03/19 TIME: 14:23 Assessment/Plan VTE Prophylaxis Risk score (from Ns)>0 risk: 3 SCD applied (from Ns): Yes Pharmacological prophylaxis: NA/contraindicated Pharm contraindication: low risk/ambulating Lines/Catheters [facility] Saline Lock Assessment/Plan Assessment/Plan 53 yo man history of pharyngeal cancer and newly diagnosed COPD presents with pneumonia. Multifocal micronodular pneumonia -Seen on CT angiogram done at transferring facility -Broad-spectrum IV antibiotic -Pulmonary consulted. Recommendations appreciated regarding possible spread of cancer if any versus multifocal pneumonia -Infectious disease also on board to direct IV antibiotic -Cultures taken, pending. -Also plan for video swallow eval today to rule out aspiration. History of pharyngeal carcinoma -Unknown if in true remission, patient states that his last visit with his oncologist was a year ago, has a history of radiation therapy and chemotherapy, according to patient chemotherapy had to be stopped due to bowel rupture and subsequent colostomy Electrolyte derangement -Patient has very mild low sodium and very mild low potassium at outside facility however received fluids, will reorder labs and if stable will monitor -Replete as needed COPD seen on CT angiogram -bullous COPD, patient is a daily smoker, denies knowing that had COPD -DuoNeb and budesonide nebulizer for now given cough/resp symptoms Questional history of depression and schizoaffective disorder -Not on any medications, patient appears stable, monitor T7 Schmorl's node -Asymptomatic at this time, monitor closely History of colostomy -Patient unsure exactly what happened to his bowel but stated that his bowel had a rupture -Colostomy care Disposition -Continue IV antibiotics, video swallow eval tomorrow. Result Diagram: 03/02/19 0656 03/02/19 0656 Subjective 24 Hr Interval Summary Free Text/Dictation No acute overnight events. Patient feeling well today. Still has mild productive cough. Exam/Review of Systems Exam Vitals Vital Signs Date Temp Pulse Resp B/P (MAP) Pulse Ox O2 O2 Flow FiO2 Time Delivery Rate 03/03/19 97.6 74 18 118/78 97 14:13 (91) 03/03/19 21 07:16 03/01/19 Room Air 17:08 03/01/19 8.0 14:26 Intake and Output 8/12/1403/02/19 03/03/19 1515:00 23:00 07:00 IntakeIntake Total 1020 ml 340 ml 1140 ml OutputOutput Total 250 ml 1600 ml BalanceBalance 770 ml 340 ml -460 ml Exam General: Patient is laying in bed and answers questions appropriately Mentation: Patient is alert and oriented 4, Head: Normocephalic atraumatic Eyes: EOMI, pupils reactive to light Neck: Supple, nontender, midline Respiratory: Coarse to auscultation bilaterally Cardiovascular: regular rate, no obvious murmurs Gastrointestinal: non-tender to palpation, bowel sounds heard. Medications Medication Current Medications IV Flush (NS 3 ml) 3 ml PER PROTOCOL IV ; Start 03/01/19 at 13:30 Ondansetron HCl (Zofran Inj) 4 mg Q6H PRN IV NAUSEA/VOMITING; Start 03/01/19 at 13:30 Acetaminophen (Tylenol Tab) 650 mg Q6H PRN PO .PAIN 1-3 OR TEMP; Start 03/01/19 at 13:30 Acetaminophen/ Hydrocodone Bitart ([place] (5/325)) 1 tab Q6H PRN PO .PAIN 4-6 Last administered on 03/01/19 14:08; Admin Dose 1 TAB; Start 03/01/19 at 13:30 Morphine Sulfate (morphine) 2 mg Q4H PRN IV .PAIN 7-10 Last administered on 03/03/19at 11:08; Admin Dose 2 MG; Start 03/01/19 at 13:30 Heparin Sodium (Porcine) (Heparin (5000 Units/1ml)) 5,000 unit Q12 SC Last administered on 03/03/19 08:30; Admin Dose 5,000 UNIT; Start 03/01/19 at 13:30 Piperacillin Sod/ Tazobactam Sod 100 ml @ 200 mls/hr Q6 IVPB Last administered on 03/03/19 11:07; Admin Dose 200 MLS/HR; Start 03/01/19 at 14:00 Albuterol/ Ipratropium (Duoneb) 3 ml Q6HWA RESP THERAPY HHN Last administered on 03/03/19 07:15; Admin Dose 3 ML; Start 03/01/19 at 14:00 Albuterol/ Ipratropium (Duoneb) 3 ml Q2H RESP THERAPY PRN HHN shortness of breath; Start 03/01/19 at 14:00 Budesonide (Pulmicort (Neb)) 0.5 mg BID RESP THERAPY HHN Last administered on 03/03/19at 07:16; Admin Dose 0.5 MG; Start 03/01/19 at 20:00 CIERRA ANNE MD Mar 03, 2019 14:24
--- NOTE | 2019-03-03 14:50 | CONS ---
Assessment/Plan Assessment/Plan Hospital Course (Demo Recall) No acute changes overnight patient looks comfortable no fevers. Microbiology: Blood cultures negative Antimicrobials: Zosyn Physical examination: This is a well-developed middle-aged white male who is in no distress. Head atraumatic normocephalic. Neck is supple. Chest rise symmetrical, breath sounds diminished on the right. Heart: S1-S2. Abdomen soft bowel sounds present. Extremities without cyanosis. Assessment: 1. Pneumonia, likely ongoing aspiration 2. History of pharyngeal carcinoma 3. Dysphasia Plan: Remains stable, on appropriate antibiotic regimen, video swallow yaya luation noted Consultation Date/Type/Reason Admit Date/Time Mar 01, 2019 at 13:13 Initial Consult Date 03/01/19 Type of Consult id Requesting Provider: VIELKA ELAINE Date/Time of Note DATE: 03/03/19 TIME: 14:49 Exam/Review of Systems Exam Vitals Vital Signs Date Temp Pulse Resp B/P (MAP) Pulse Ox O2 O2 Flow FiO2 Time Delivery Rate 03/03/19 97.6 74 18 118/78 97 14:13 (91) 03/03/19 21 07:16 03/01/19 Room Air 17:08 03/01/19 8.0 14:26 Intake and Output 03/02/19 03/02/19 03/03/19 1515:00 23:00 07:00 IntakeIntake Total 1020 ml 340 ml 1140 ml OutputOutput Total 250 ml 1600 ml BalanceBalance 770 ml 340 ml -460 ml Results Result Diagram: 03/02/19 0656 03/02/19 0656 Medications Medication Current Medications IV Flush (NS 3 ml) 3 ml PER PROTOCOL IV ; Start 03/01/19 at 13:30 Ondansetron HCl (Zofran Inj) 4 mg Q6H PRN IV NAUSEA/VOMITING; Start 03/01/19 at 13:30 Acetaminophen (Tylenol Tab) 650 mg Q6H PRN PO .PAIN 1-3 OR TEMP; Start 03/01/19 at 13:30 Acetaminophen/ Hydrocodone Bitart ([place] (5/325)) 1 tab Q6H PRN PO .PAIN 4-6 Last administered on 03/01/19at 14:08; Admin Dose 1 TAB; Start 03/01/19 at 13:30 Morphine Sulfate (morphine) 2 mg Q4H PRN IV .PAIN 7-10 Last administered on 03/03/19 11:08; Admin Dose 2 MG; Start 03/01/19 at 13:30 Heparin Sodium (Porcine) (Heparin (5000 Units/1ml)) 5,000 unit Q12 SC Last administered on 03/03/19 08:30; Admin Dose 5,000 UNIT; Start 03/01/19 at 13:30 Piperacillin Sod/ Tazobactam Sod 100 ml @ 200 mls/hr Q6 IVPB Last administered on 03/03/19 11:07; Admin Dose 200 MLS/HR; Start 03/01/19 at 14:00 Albuterol/ Ipratropium (Duoneb) 3 ml Q6HWA RESP THERAPY HHN Last administered on 03/03/19 07:15; Admin Dose 3 ML; Start 03/01/19 at 14:00 Albuterol/ Ipratropium (Duoneb) 3 ml Q2H RESP THERAPY PRN HHN shortness of breath; Start 03/01/19 at 14:00 Budesonide (Pulmicort (Neb)) 0.5 mg BID RESP THERAPY HHN Last administered on 03/03/19 07:16; Admin Dose 0.5 MG; Start 03/01/19 at 20:00 COLTON PRYOR NP Mar 03, 2019 14:50
[2019-03-03 20:00] VITALS: BP 121/65; PULSE 81; RESP 19
[2019-03-04] MEDS: PIPER-TAZO 3.375 GM IV (PMX) 100 ML IVPB SCH ×4 (00:55→18:00)
[2019-03-04 02:00] VITALS: BP 131/78; PULSE 80; RESP 19
[2019-03-04] MEDS: morphine 2 MG INJ IV PRN ×2 (02:21→10:03)
[2019-03-04 07:45] VITALS: BP 110/74; PULSE 84; RESP 18
[2019-03-04] MEDS: HEPARIN 5,000 UNIT/1 ML VIAL SC SCH (08:38)
[2019-03-04] MEDS: ALBUTEROL/IPRATROPIUM (NEB) 3 ML AMP HHN SCH ×2 (08:45→15:27)
[2019-03-04] MEDS: BUDESONIDE (NEB) 0.5MG/2ML AMP HHN SCH (08:45)
--- NOTE | 2019-03-04 12:16 | PDOCDIS ---
Discharge Instructions DIAGNOSIS Discharge Diagnosis Community-acquired pneumonia CONDITION [id number] Patient Condition: [id number] Good HOME CARE INSTRUCTIONS: [id number] Diet Instructions: [id number] Regular ACTIVITY: [id number] Activity Restrictions: [id number] No Restrictions FOLLOW UP/APPOINTMENTS Follow-up Plan 1. Take levofloxacin (an antibiotic) as prescribed, daily for seven more days. 2. See your primary care doctor in 1-[address] Mejias with pulmonary medicine wants to see you in clinic in 1-2 weeks. Call his office for an appointment [phone]. 4. Return to the emergency room if you develop worsening trouble breathing at rest. CIERRA ANNE MD Mar 04, 2019 12:16
--- NOTE | 2019-03-04 14:00 | CONS ---
Assessment/Plan Assessment/Plan Hospital Course (Demo Recall) No acute changes overnight patient is sleeping looks comfortable no fevers WBC 7.3 neutrophils 84.7 BUN 7 creatinine 0.53 Microbiology: Blood cultures negative Antimicrobials: Zosyn Physical examination: This is a well-developed middle-aged white male who is in no distress. Head atraumatic normocephalic. Neck is supple. Chest rise symmetrical, breath sounds diminished on the right. Heart: S1-S2. Abdomen soft bowel sounds present. Extremities without cyanosis. Assessment: 1. Pneumonia, likely ongoing aspiration 2. History of pharyngeal carcinoma 3. Dysphasia Plan: Remains stable, on appropriate antibiotic regimen, continue supportive care, aspiration precautions Consultation Date/Type/Reason Admit Date/Time Mar 01, 2019 at 13:13 Initial Consult Date 03/01/19 Type of Consult id Requesting Provider: VIELKA ELAINE Date/Time of Note DATE: 03/04/19 TIME: 14:00 Exam/Review of Systems Exam Vitals Vital Signs Date Temp Pulse Resp B/P (MAP) Pulse Ox O2 O2 Flow FiO2 Time Delivery Rate 03/04/19 98.2 84 18 110/74 95 07:45 (86) 03/03/19 21 20:22 03/01/19 Room Air 17:08 03/01/19 8.0 14:26 Intake and Output 03/03/19 03/03/19 03/04/19 1515:00 23:00 07:00 IntakeIntake Total 340 ml 340 ml 500 ml OutputOutput Total 550 ml 400 ml 700 ml BalanceBalance -210 ml -60 ml -200 ml Results Result Diagram: 03/04/19 0500 03/04/19 0500 Results 24hrs Laboratory Tests Test 03/04/19 05:00 White Blood Count 7.3 # Red Blood Count 3.91 L Hemoglobin 11.5 L Hematocrit 35.5 L Mean Corpuscular Volume 90.8 Mean Corpuscular Hemoglobin 29.4 Mean Corpuscular Hemoglobin Concent 32.4 Red Cell Distribution Width 14.4 Platelet Count 328 # Mean Platelet Volume 9.2 Immature Granulocytes % 0.700 H Neutrophils % 84.7 H Lymphocytes % 5.8 L Monocytes % 8.3 Eosinophils % 0.4 Basophils % 0.1 Nucleated Red Blood Cells % 0.0 Immature Granulocytes # 0.050 H Neutrophils # 6.2 Lymphocytes # 0.4 L Monocytes # 0.6 Eosinophils # 0.0 Basophils # 0.0 Nucleated Red Blood Cells # 0.0 Sodium Level 138 Potassium Level 4.4 Chloride Level 100 Carbon Dioxide Level 32 H Anion Gap 6 Blood Urea Nitrogen 7 Creatinine 0.53 L Est Glomerular Filtrat Rate mL/min > 60 Glucose Level 94 # Calcium Level 9.3 Phosphorus Level 3.9 Magnesium Level 1.7 Total Bilirubin 0.3 Direct Bilirubin 0.00 Indirect Bilirubin 0.3 Aspartate Amino Transf (AST/SGOT) 20 Alanine Aminotransferase (ALT/SGPT) 34 Alkaline Phosphatase 69 Total Protein 6.6 Albumin 3.2 L Globulin 3.40 H Albumin/Globulin Ratio 0.94 Medications Medication Current Medications IV Flush (NS 3 ml) 3 ml PER PROTOCOL IV ; Start 03/01/19 at 13:30 Ondansetron HCl (Zofran Inj) 4 mg Q6H PRN IV NAUSEA/VOMITING; Start 03/01/19 at 13:30 Acetaminophen (Tylenol Tab) 650 mg Q6H PRN PO .PAIN 1-3 OR TEMP; Start 03/01/19 at 13:30 Acetaminophen/ Hydrocodone Bitart ([place] (5/325)) 1 tab Q6H PRN PO .PAIN 4-6 Last administered on 03/01/19 14:08; Admin Dose 1 TAB; Start 03/01/19 at 13:30 Morphine Sulfate (morphine) 2 mg Q4H PRN IV .PAIN 7-10 Last administered on 03/04/19 10:03; Admin Dose 2 MG; Start 03/01/19 at 13:30 Heparin Sodium (Porcine) (Heparin (5000 Units/1ml)) 5,000 unit Q12 SC Last administered on 03/04/19 08:38; Admin Dose 5,000 UNIT; Start 03/01/19 at 13:30 Piperacillin Sod/ Tazobactam Sod 100 ml @ 200 mls/hr Q6 IVPB Last administered on 03/04/19 11:06; Admin Dose 200 MLS/HR; Start 03/01/19 at 14:00 Albuterol/ Ipratropium (Duoneb) 3 ml Q6HWA RESP THERAPY HHN Last administered on 03/04/19 08:45; Admin Dose 3 ML; Start 03/01/19 at 14:00 Albuterol/ Ipratropium (Duoneb) 3 ml Q2H RESP THERAPY PRN HHN shortness of breath; Start 03/01/19 at 14:00 Budesonide (Pulmicort (Neb)) 0.5 mg BID RESP THERAPY HHN Last administered on 03/04/19at 08:45; Admin Dose 0.5 MG; Start 03/01/19 at 20:00 COLTON PRYOR NP Mar 04, 2019 14:00
[2019-03-04 14:02] VITALS: BP 122/75; PULSE 90; RESP 16
--- NOTE | 2019-03-04 15:25 | CONS ---
Consult Date/Type/Reason Admit Date/Time Mar 01, 2019 at 13:13 Initial Consult Date 03/01/19 Type of Consult Pulmonary Requesting Provider: VIELKA ELAINE Date/Time of Note DATE: 03/04/19 TIME: 15:24 Subjective Better today. Less shortness of breath Objective Vital Signs Date Temp Pulse Resp B/P (MAP) Pulse Ox O2 O2 Flow FiO2 Time Delivery Rate 03/04/19 97.8 90 16 122/75 97 14:02 (91) 03/03/19 21 20:22 03/01/19 Room Air 17:08 03/01/19 8.0 14:26 Intake and Output 03/03/19 03/03/19 03/04/19 1515:00 23:00 07:00 IntakeIntake Total 340 ml 340 ml 500 ml OutputOutput Total 550 ml 400 ml 700 ml BalanceBalance -210 ml -60 ml -200 ml Exam GENERAL: VITAL SIGNS: per chart NECK: Supple. No JVD or lymphadenopathy. CARDIAC EXAM: S1, S2. No added sounds or murmurs. CHEST: Diminished air entry bilaterally ABDOMEN: Soft, nontender. No guarding or rebound. EXTREMITIES: No cyanosis, clubbing or edema. NEUROLOGIC: Generalized weakness. No focal deficits. Well-nourished well- developed gentleman comfortable at rest Vent Setting Fraction of Inspired Oxygen pe: 21 Results/Medications Result Diagram: 03/04/19 0500 03/04/19 0500 Results 24 hrs Laboratory Tests Test 03/04/19 05:00 White Blood Count 7.3 # Red Blood Count 3.91 L Hemoglobin 11.5 L Hematocrit 35.5 L Mean Corpuscular Volume 90.8 Mean Corpuscular Hemoglobin 29.4 Mean Corpuscular Hemoglobin Concent 32.4 Red Cell Distribution Width 14.4 Platelet Count 328 # Mean Platelet Volume 9.2 Immature Granulocytes % 0.700 H Neutrophils % 84.7 H Lymphocytes % 5.8 L Monocytes % 8.3 Eosinophils % 0.4 Basophils % 0.1 Nucleated Red Blood Cells % 0.0 Immature Granulocytes # 0.050 H Neutrophils # 6.2 Lymphocytes # 0.4 L Monocytes # 0.6 Eosinophils # 0.0 Basophils # 0.0 Nucleated Red Blood Cells # 0.0 Sodium Level 138 Potassium Level 4.4 Chloride Level 100 Carbon Dioxide Level 32 H Anion Gap 6 Blood Urea Nitrogen 7 Creatinine 0.53 L Est Glomerular Filtrat Rate mL/min > 60 Glucose Level 94 # Calcium Level 9.3 Phosphorus Level 3.9 Magnesium Level 1.7 Total Bilirubin 0.3 Direct Bilirubin 0.00 Indirect Bilirubin 0.3 Aspartate Amino Transf (AST/SGOT) 20 Alanine Aminotransferase (ALT/SGPT) 34 Alkaline Phosphatase 69 Total Protein 6.6 Albumin 3.2 L Globulin 3.40 H Albumin/Globulin Ratio 0.94 Medications Current Medications IV Flush (NS 3 ml) 3 ml PER PROTOCOL IV ; Start 03/01/19 at 13:30 Ondansetron HCl (Zofran Inj) 4 mg Q6H PRN IV NAUSEA/VOMITING; Start 03/01/19 at 13:30 Acetaminophen (Tylenol Tab) 650 mg Q6H PRN PO .PAIN 1-3 OR TEMP; Start 03/01/19 at 13:30 Acetaminophen/ Hydrocodone Bitart ([place] (5/325)) 1 tab Q6H PRN PO .PAIN 4-6 Last administered on 03/01/19at 14:08; Admin Dose 1 TAB; Start 03/01/19 at 13:30 Morphine Sulfate (morphine) 2 mg Q4H PRN IV .PAIN 7-10 Last administered on 03/04/19at 10:03; Admin Dose 2 MG; Start 03/01/19 at 13:30 Heparin Sodium (Porcine) (Heparin (5000 Units/1ml)) 5,000 unit Q12 SC Last administered on 03/04/19 08:38; Admin Dose 5,000 UNIT; Start 03/01/19 at 13:30 Piperacillin Sod/ Tazobactam Sod 100 ml @ 200 mls/hr Q6 IVPB Last administered on 03/04/19at 11:06; Admin Dose 200 MLS/HR; Start 03/01/19 at 14:00 Albuterol/ Ipratropium (Duoneb) 3 ml Q6HWA RESP THERAPY HHN Last administered on 03/04/19at 08:45; Admin Dose 3 ML; Start 03/01/19 at 14:00 Albuterol/ Ipratropium (Duoneb) 3 ml Q2H RESP THERAPY PRN HHN shortness of breath; Start 03/01/19 at 14:00 Budesonide (Pulmicort (Neb)) 0.5 mg BID RESP THERAPY HHN Last administered on 03/04/19at 08:45; Admin Dose 0.5 MG; Start 03/01/19 at 20:00 Assessment/Plan Hospital Course (Demo Recall) IMP: 1. Multifocal patchy centrilobular nodular opacities--likely 2/2 infectious bronchiolitis r/o aspiration and NTB especially SHERYL 2. History of H&N cancer s/p XRT and chemo--no evidence of recurrence 3. +/- COPD exacerbation 4. Severe emphysema RECS: 1. Bd's/CPT as needed 2. Abx per ID 3. Sputum GS and Cx 4. Sputum AFB x 3 for SHERYL ? 5. Steroids for COPD exacerbation 6. Initiate LAMA/LABA/ICS prior to d/c 7. DVT prophylaxis 8. Follow-up with me as an outpatient 9. Outpatient pulmonary function testing Agree with DC planning DOLORES HENLEY MD, [facility] Mar 04, 2019 15:24
[2019-03-04] MEDS: HYDROCODONE/APAP (5/325) TAB PO PRN (15:43)
--- NOTE | 2019-03-04 16:03 | DS ---
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 Patient states that he went to the ER due to 3 days of worsening cough and generalized malaise and weakness. Otherwise patient states that before he was in his normal state of health, patient ambulates on his own and other than some mild chronic difficulty eating due to radiation scarring he has no other acute complaints at this time. Patient states that he is currently not on chemotherapy or radiation as his oncologist stated that there is nothing else to do for him in the last time he saw an oncologist was approximately 1 or 1 and 1/2 years ago. Patient currently follows up with a primary care provider and currently takes no medications. Patient denies headache, nausea, vomiting, abdominal pain, bowel or bladder dysfunction, leg pain. Hospital Course The patient got a CXR which showed bilateral lower lobe consolidations c oncerning for pneumonia. He was started on IV Zosyn. There was concern for aspiration; but he got a swallow evaluation including a modified barium swallow which was negative for aspiration. He likely has COPD and was started on bronchodilators. He will be discharged to finish a course of levofloxacin; and was advised to follow up with Dr. Mejias in clinic. Home Meds Active Scripts Levofloxacin* (Levofloxacin*) 750 Mg Tablet, 750 MG PO DAILY for 7 Days, #7 TAB Prov:CIERRA ANNE MD 03/04/19 Reported Medications Ibuprofen* (Advil*) 200 Mg Capsule, 200 MG PO DAILY PRN for PAIN, CAP 03/01/19 Discontinued Scripts Hydrocodone/Acetaminophen ([place] 5-325 Tablet) 1 Each Tablet, 1 TAB PO Q6H PRN for PAIN, #7 TAB Prov:VIRA BENJAMIN MD 01/30/19 Albuterol Sulfate* (Proair HFA*) 8.5 Gm Hfa.aer.ad, 2 PUFF INH Q4, #1 INHALER Prov:JOANNE CHRISTINE MD 08/04/18 Dextromethorphan Hb-Promethazine Hcl* (Promethazine DM* Syrup) 473 Ml Syrup, 10 ML PO Q6 PRN for COUGH, #120 ML Prov:JOANNE CHRISTINE MD 08/04/18 Azithromycin* (Zithromax*) 250 Mg Tablet, 250 MG PO .ZPACK DIRECTED, #6 TAB TAKE 500 MG (2 TABS) THE FIRST DAY THEN 250 MG (1 TAB) DAYS 2-5 Prov:JOANNE CHRISTINE MD 08/04/18 Follow-up Plan 1. Take levofloxacin (an antibiotic) as prescribed, daily for seven more days. 2. See your primary care doctor in 1-[address] Mejias with pulmonary medicine wants to see you in clinic in 1-2 weeks. Call his office for an appointment [phone]. 4. Return to the emergency room if you develop worsening trouble breathing at rest. Primary Care Provider Not On Staff Doctor Time spent on discharge: > 30 minutes Pending Labs Laboratory Tests Test 03/04/19 05:00 White Blood Count 7.3 10^3/ul (4.8-10.8) Red Blood Count 3.91 10^6/ul (4.70-6.10) Hemoglobin 11.5 g/dl (14.0-18.0) Hematocrit 35.5 % (42.0-52.0) Mean Corpuscular Volume 90.8 fl (82.0-101.0) Mean Corpuscular Hemoglobin 29.4 pg (29.0-33.0) Mean Corpuscular Hemoglobin Concent 32.4 g/dl (32.0-37.0) Red Cell Distribution Width 14.4 % (11.5-14.5) Platelet Count 328 10^3/UL (140-415) Mean Platelet Volume 9.2 fl (7.4-10.4) Immature Granulocytes % 0.700 % (0.001-0.429) Neutrophils % 84.7 % (39.0-77.0) Lymphocytes % 5.8 % (15.0-51.0) Monocytes % 8.3 % (0.0-11.0) Eosinophils % 0.4 % (0.0-7.0) Basophils % 0.1 % (0.0-2.0) Nucleated Red Blood Cells % 0.0 /100WBC (0.0-0.0) Immature Granulocytes # 0.050 10^3/ul (0.0-0.031) Neutrophils # 6.2 10^3/ul (1.6-7.5) Lymphocytes # 0.4 10^3/ul (0.8-2.9) Monocytes # 0.6 10^3/ul (0.3-0.9) Eosinophils # 0.0 10^3/ul (0.0-0.5) Basophils # 0.0 10^3/ul (0.0-0.1) Nucleated Red Blood Cells # 0.0 10^3/ul (0.0-0.0) Sodium Level 138 mmol/L (135-144) Potassium Level 4.4 mmol/L (3.5-5.1) Chloride Level 100 mmol/L (97-110) Carbon Dioxide Level 32 mmol/L (21-31) Anion Gap 6 (5-13) Blood Urea Nitrogen 7 mg/dl (7-20) Creatinine 0.53 mg/dl (0.61-1.24) Est Glomerular Filtrat Rate mL/min > 60 mL/min (>60) Glucose Level 94 mg/dl (70-220) Calcium Level 9.3 mg/dl (8.4-10.2) Phosphorus Level 3.9 mg/dl (2.5-4.9) Magnesium Level 1.7 mg/dl (1.7-2.5) Total Bilirubin 0.3 mg/dl (0.2-1.3) Direct Bilirubin 0.00 mg/dl (0.00-0.20) Indirect Bilirubin 0.3 mg/dl (0-1.1) Aspartate Amino Transf (AST/SGOT) 20 IU/L (15-46) Alanine Aminotransferase (ALT/SGPT) 34 IU/L (13-69) Alkaline Phosphatase 69 IU/L (42-121) Total Protein 6.6 g/dl (6.1-8.1) Albumin 3.2 g/dl (3.3-4.9) Globulin 3.40 g/dl (1.3-3.2) Albumin/Globulin Ratio 0.94 CIERRA ANNE MD Mar 04, 2019 16:03
== END 2019-03-04 18:47 | disposition home or self-care (01) | DRG 194 ==
LOC: E/R 13:03 → PP2 13:13 → EDBEDREQSVC 15:46
PROVIDERS: ADMIT Internal Medicine; ATTEND Internal Medicine
DX: J18.9 Pneumonia, unspecified organism (principal); J44.0 Chronic obstructive pulmonary disease with (acute) lower respiratory infection; J44.1 Chronic obstructive pulmonary disease with (acute) exacerbation; F17.210 Nicotine dependence, cigarettes, uncomplicated; Z93.3 Colostomy status; F12.90 Cannabis use, unspecified, uncomplicated; R47.02 Dysphasia; Z85.038 Personal history of other malignant neoplasm of large intestine; Z85.819 Personal history of malignant neoplasm of unspecified site of lip, oral cavity, and pharynx; Z92.21 Personal history of antineoplastic chemotherapy; Z92.3 Personal history of irradiation
CPT/HCPCS: 71045; 74230; 80053; 80061; 83036; 83735; 84100; 84443; 84484; 85025; 92526; 92610; 92611; 94640; 94664; J1644; J2270; J2543; J7030; J7512

== ENCOUNTER 2019-05-28 14:10 | Emergency (ER) | payer BC ==
[~2019-05-28] VITALS: Ht 175.3 cm; Wt 70.0 kg
[~2019-05-28 14:10] MED LIST changes: -ALBU8.5H8 INH; -AZIT250T PO; -D-ME473S2 PO; -HYDR-4011 PO; +LOPE2CAP PO; +ONDA4TAB14 PO
[2019-05-28 14:21] VITALS: BP 133/65; PULSE 75; RESP 18; Ht 175.3 cm; Wt 70.0 kg
== END 2019-05-28 14:21 | disposition home or self-care (01) ==
LOC: E/R 14:10
DX: Z43.3 Encounter for attention to colostomy (principal); Z87.891 Personal history of nicotine dependence
CPT/HCPCS: 99282

== ENCOUNTER 2019-05-30 13:08 | Emergency (ER) | payer BC ==
[~2019-05-30] VITALS: Ht 182.9 cm; Wt 56.0 kg
[2019-05-30 13:22] VITALS: BP 157/96; PULSE 99; RESP 18; Ht 182.9 cm; Wt 56.0 kg
== END 2019-05-30 14:45 | disposition home or self-care (01) ==
LOC: FTE 13:08
DX: Z43.3 Encounter for attention to colostomy (principal); F17.210 Nicotine dependence, cigarettes, uncomplicated; Z86.73 Personal history of transient ischemic attack (TIA), and cerebral infarction without residual deficits
CPT/HCPCS: Z7502; Z7610; 99282